=== PATIENT | female | born 1985 | race Caucasian/White ===

== ENCOUNTER 2016-07-27 10:15 | Emergency (ER) | payer OTHER ==
[2016-07-27 10:21] VITALS: TEMP 99
[2016-07-27] MEDS ORDERED: SODIUM CHLORIDE 0.9% 1,000 ML IV STA (10:39)
[2016-07-27] MEDS ORDERED: PANTOPRAZOLE 40 MG/10 ML VIAL IVP STA (10:39)
--- NOTE | 2016-07-27 10:42 | ED ---
Nausea/Vomiting/Diarrhea HPI - General Chief complaint: Nausea/Vomiting/Diarrhea Stated complaint: diarrhea Time Seen by Provider: 07/27/16 10:36 Source: patient, RN notes reviewed Mode of arrival: ambulatory Limitations: no limitations - History of Present Illness Initial comments: 31-year-old female presents emergency Department with chief complaint of diarrhea 2 days. Patient states that it's multiple episodes today and loose watery. Patient states she took some Pepto-Bismol which has not helped. She states she is concerned that she's noticed some black stool states only started after taking Pepto-Bismol. Patient denies any abdominal pain but states she is occasionally gets some cramping. She states her father had similar symptoms. Patient has fever, chills, nausea, vomiting. Patient denies any chest pain or shortness breath. She states she has no history of gastritis or stomach ulcers. Patient does not take regular NSAIDs. Patient has no dysuria no hematuria. - Related Data Home Medications Medication Instructions Recorded Confirmed Levothyroxine Sodium [Synthroid] 50 mcg PO DAILY 08/25/14 07/27/16 Previous Rx's Medication Instructions Recorded Albuterol Inhaler [Ventolin Hfa 1 - 2 puff INHALATION Q4-6H PRN #1 01/11/15 Inhaler] inhaler Allergies Allergy/AdvReac Type Severity Reaction Status Date / Time No Known Allergies Allergy Verified 07/27/16 10:20 Review of Systems ROS Statement: Those systems with pertinent positive or pertinent negative responses have been documented in the HPI. ROS Other: All systems not noted in ROS Statement are negative. Past Medical History Past Medical History: Hypertension, Thyroid Disorder History of Any Multi-Drug Resistant Organisms: None Reported Additional Past Surgical History / Comment(s): eye Past Psychological History: No Psychological Hx Reported Smoking Status: Never smoker Past Alcohol Use History: None Reported Past Drug Use History: None Reported General Exam Limitations: no limitations General appearance: alert, in no apparent distress Head exam: Present: atraumatic, normocephalic, normal inspection Respiratory exam: Present: normal lung sounds bilaterally. Absent: respiratory distress, wheezes, rales, rhonchi, stridor Cardiovascular Exam: Present: regular rate, normal rhythm, normal heart sounds. Absent: systolic murmur, diastolic murmur, rubs, gallop, clicks GI/Abdominal exam: Present: soft, normal bowel sounds. Absent: distended, tenderness, guarding, rebound, rigid Back exam: Absent: CVA tenderness (R), CVA tenderness (L) Neurological exam: Present: alert, oriented X3, CN II-XII intact Course Vital Signs 07/27/16 10:19 Temperature 99.0 F Pulse Rate 86 Respiratory 20 Rate Blood Pressure 152/84 O2 Sat by Pulse 99 Oximetry Medical Decision Making - Medical Decision Making 31-year-old female presents emergency Department with chief complaint of diarrhea. Patient has viral diarrhea there is no evidence of pain pectoral infection at this time. Patient Hemoccult-negative most likely her black stools related to Pepto-Bismol use. Patient be discharged at this time return parameters discussed. - Lab Data Result diagrams: 07/27/16 10:47 07/27/16 10:47 Lab Results 07/27/16 07/27/16 07/27/16 Range/Units 10:47 10:47 10:47 WBC 7.1 (3.8-10.6) k/uL RBC 4.58 (3.80-5.40) m/uL Hgb 13.7 (11.4-16.0) gm/dL Hct 41.5 (34.0-46.0) % MCV 90.5 (80.0-100.0) fL MCH 29.8 (25.0-35.0) pg MCHC 33.0 (31.0-37.0) g/dL RDW 13.1 (11.5-15.5) % Plt Count 231 (150-450) k/uL Neutrophils % 74 % Lymphocytes % 15 % Monocytes % 6 % Eosinophils % 2 % Basophils % 0 % Neutrophils # 5.3 (1.3-7.7) k/uL Lymphocytes # 1.1 (1.0-4.8) k/uL Monocytes # 0.4 (0-1.0) k/uL Eosinophils # 0.2 (0-0.7) k/uL Basophils # 0.0 (0-0.2) k/uL PT 10.2 (9.0-12.0) sec INR 1.0 (<1.1) APTT 24.7 (22.0-30.0) sec Sodium 141 (137-145) mmol/L Potassium 4.5 (3.5-5.1) mmol/L Chloride 107 (98-107) mmol/L Carbon Dioxide 22 (22-30) mmol/L Anion Gap 12 mmol/L BUN 12 (7-17) mg/dL Creatinine 0.70 (0.52-1.04) mg/dL Est GFR (MDRD) Af Amer >60 (>60 ml/min/1.73 sqM) Est GFR (MDRD) Non-Af >60 (>60 ml/min/1.73 sqM) Glucose 102 H (74-99) mg/dL Calcium 8.9 (8.4-10.2) mg/dL Total Bilirubin 0.9 (0.2-1.3) mg/dL AST 24 (14-36) U/L ALT 41 (9-52) U/L Alkaline Phosphatase 120 (38-126) U/L Total Protein 6.8 (6.3-8.2) g/dL Albumin 4.1 (3.5-5.0) g/dL Lipase 57 (23-300) U/L Urine Color Urine Appearance (Clear) Urine pH (5.0-8.0) Ur Specific [place] (1.001-1.035) Urine Protein (Negative) Urine Glucose (UA) (Negative) Urine Ketones (Negative) Urine Blood (Negative) Urine Nitrate (Negative) Urine Bilirubin (Negative) Urine Urobilinogen (<2.0) mg/dL Ur Leukocyte Esterase (Negative) Urine RBC (0-5) /hpf Urine WBC (0-5) /hpf Ur Squamous Epith Cells (0-4) /hpf Urine Bacteria (None) /hpf Urine Mucus (None) /hpf Urine HCG, Qual (Not Detectd) Stool Occult Blood (Negative) 07/27/16 07/27/16 07/27/16 Range/Units 10:47 10:47 10:47 WBC (3.8-10.6) k/uL RBC (3.80-5.40) m/uL Hgb (11.4-16.0) gm/dL Hct (34.0-46.0) % MCV (80.0-100.0) fL MCH (25.0-35.0) pg MCHC (31.0-37.0) g/dL RDW (11.5-15.5) % Plt Count (150-450) k/uL Neutrophils % % Lymphocytes % % Monocytes % % Eosinophils % % Basophils % % Neutrophils # (1.3-7.7) k/uL Lymphocytes # (1.0-4.8) k/uL Monocytes # (0-1.0) k/uL Eosinophils # (0-0.7) k/uL Basophils # (0-0.2) k/uL PT (9.0-12.0) sec INR (<1.1) APTT (22.0-30.0) sec Sodium (137-145) mmol/L Potassium (3.5-5.1) mmol/L Chloride (98-107) mmol/L Carbon Dioxide (22-30) mmol/L Anion Gap mmol/L BUN (7-17) mg/dL Creatinine (0.52-1.04) mg/dL Est GFR (MDRD) Af Amer (>60 ml/min/1.73 sqM) Est GFR (MDRD) Non-Af (>60 ml/min/1.73 sqM) Glucose (74-99) mg/dL Calcium (8.4-10.2) mg/dL Total Bilirubin (0.2-1.3) mg/dL AST (14-36) U/L ALT (9-52) U/L Alkaline Phosphatase (38-126) U/L Total Protein (6.3-8.2) g/dL Albumin (3.5-5.0) g/dL Lipase (23-300) U/L Urine Color Light Yellow Urine Appearance Clear (Clear) Urine pH 6.0 (5.0-8.0) Ur Specific [place] 1.008 (1.001-1.035) Urine Protein Negative (Negative) Urine Glucose (UA) Negative (Negative) Urine Ketones Negative (Negative) Urine Blood Negative (Negative) Urine Nitrate Negative (Negative) Urine Bilirubin Negative (Negative) Urine Urobilinogen <2.0 (<2.0) mg/dL Ur Leukocyte Esterase Small H (Negative) Urine RBC 1 (0-5) /hpf Urine WBC 7 H (0-5) /hpf Ur Squamous Epith Cells 5 H (0-4) /hpf Urine Bacteria Few H (None) /hpf Urine Mucus Rare H (None) /hpf Urine HCG, Qual Not Detected (Not Detectd) Stool Occult Blood Negative (Negative) Disposition Clinical Impression: Viral diarrhea Disposition: HOME SELF-CARE Condition: Stable Instructions: Acute Diarrhea (ED) Additional Instructions: Please return to the Emergency Department if symptoms worsen or any other concerns. Time of Disposition: 11:40
[2016-07-27 11:09] LABS: Basophils % (A) 0 %; CH 30.9; CHCM 34.3; Eosinophils # (A) 0.2 k/uL (0-0.7); Eosinophils % (A) 2 %; HCT 41.5 % (34.0-46.0); HDW 2.76; HGB 13.7 gm/dL (11.4-16.0); Luc # (Auto) 0.19; Luc % (Auto) 3; Lymphocytes # (A) 1.1 k/uL (1.0-4.8); Lymphocytes % (A) 15 %; MCH 29.8 pg (25.0-35.0); MCV 90.5 fL (80.0-100.0); Monocytes # (A) 0.4 k/uL (0-1.0); Monocytes % (A) 6 %; Neutrophils # (A) 5.3 k/uL (1.3-7.7); Neutrophils % (A) 74 %; RBC 4.58 m/uL (3.80-5.40); RDW 13.1 % (11.5-15.5); WBC 7.1 k/uL (3.8-10.6); WBC (Perox) 7.28
[2016-07-27 11:14] LABS: Appearance,Urine Clear (Clear); Bacteria,Urine Few /hpf; Bilirubin,Urine Negative (Negative); Glucose,Urine (UA) Negative (Negative); Ketones,Urine Negative (Negative); Leukocyte Esterase,Urine Small (Negative); Mucus,Urine Rare /hpf; Nitrite,Urine Negative (Negative); Particle Count 1122; Protein,Urine Negative (Negative); RBC,Urine 1 /hpf (0-5); Specific Gravity,Urine 1.008 (1.001-1.035); Squamous Epithelial Cell,Urine 5 /hpf (0-4); UA Billing (MACRO vs. MICRO) MICRO; Urobilinogen,Urine <2.0 mg/dL (<2.0); WBC,Urine 7 /hpf (0-5)
[2016-07-27 11:17] LABS: ALT 41 U/L (9-52); AST 24 U/L (14-36); Alkaline Phosphatase 120 U/L (38-126); Anion Gap 12 mmol/L; Blood Urea Nitrogen 12 mg/dL (7-17); Calcium 8.9 mg/dL (8.4-10.2); Carbon Dioxide 22 mmol/L (22-30); Chloride 107 mmol/L (98-107); Glucose 102 mg/dL (74-99); Non-African American GFR(MDRD) >60 (>60 ml/min/1.73 sqM); Potassium 4.5 mmol/L (3.5-5.1); Sodium 141 mmol/L (137-145); Total Bilirubin 0.9 mg/dL (0.2-1.3); Total Protein 6.8 g/dL (6.3-8.2)
[2016-07-27 11:20] LABS: Partial Thromboplastin Time 24.7 sec (22.0-30.0); Prothrombin Time 10.2 sec (9.0-12.0)
[2016-07-27 12:36] VITALS: BP 138/70; PULSE 78; RESP 18
== END 2016-07-27 12:30 | disposition home or self-care (01) ==
LOC: EC 10:15
DX: A08.4 Viral intestinal infection, unspecified (principal); Z79.899 Other long term (current) drug therapy; E07.9 Disorder of thyroid, unspecified
CPT/HCPCS: 99284; 96374; 96361; 80053; 36415; 83690; 85025; 85610; 85730; 82272; 81001; 81025; C9113

== ENCOUNTER → 2016-09-19 | Outpatient (CLI) | payer OTHER ==
--- NOTE | 2016-09-19 15:12 | US ---
EXAMINATION TYPE: US thyroid st tissue head/neck DATE OF EXAM: 09/19/2016 2:33 PM COMPARISON: US 2014 CLINICAL HISTORY: E09.9 hyperthyroid,R13.10 Dysphagia; On thyroid medication GLAND SIZE: Right Lobe: 4.4 x 0.9 x 0.8 cm Overall Parenchyma: heterogenous Left Lobe: 2.8 x 1.3 x 0.7 cm Overall Parenchyma: heterogeneous Isthmus Thickness: 0.2 cm NODULES RIGHT: # of nodules measured on right: 0 LEFT: # of nodules measured on left: 0 ISTHMUS: # of nodules measured in the isthmus: 0 Bilateral neck scanned, no evidence of lymphadenopathy. IMPRESSION: Normal sized thyroid gland without discrete nodule.
== END ==
LOC: RADUSWWP 14:10
PROVIDERS: ATTEND Family Medicine
DX: E03.9 Hypothyroidism, unspecified (principal)
CPT/HCPCS: 76536

== ENCOUNTER 2017-06-27 11:24 | Emergency (ER) | payer OTHER ==
[2017-06-27 11:40] VITALS: RESP 16
[2017-06-27] MEDS ORDERED: IBUPROFEN 600 MG TAB PO STA (11:54)
[2017-06-27] MEDS ORDERED: IPRATROPIUM-ALBUTEROL 3 ML NEB INHALATION STA (11:54)
[2017-06-27] MEDS ORDERED: ACETAMINOPHEN TAB 500 MG TAB PO STA (11:54)
--- NOTE | 2017-06-27 11:57 | ED ---
General Adult HPI - General Chief complaint: Upper Respiratory Infection Stated complaint: Cough Time Seen by Provider: 06/27/17 11:51 Source: patient, RN notes reviewed, old records reviewed Mode of arrival: ambulatory Limitations: no limitations - History of Present Illness Initial comments: 32-year-old female with past medical history of asthma presents for evaluation of URI symptoms and cough. Patient states that since Friday which is 4 days ago she has had nasal congestion, rhinorrhea, intermittent sore throat and productive cough. She also states that yesterday she had several episodes of vomiting and loose stool. She does complain of some mild body aches. She also complains of chest tightness and congestion. Patient was sent in from work for evaluation. She does complain of fever and chills as well. - Related Data Home Medications Medication Instructions Recorded Confirmed Albuterol Inhaler [Ventolin Hfa 1 - 2 puff INHALATION RT-QID PRN 06/27/17 Inhaler] Beclomethasone Dipropionate [Qvar 2 puff INHALATION RT-BID 06/27/17 06/27/17 40 mcg] Ergocalciferol (Vitamin D2) 50,000 unit PO Q7D 06/27/17 06/27/17 [Vitamin D2] Levothyroxine Sodium [Synthroid] 75 mcg PO DAILY 06/27/17 06/27/17 Loratadine [Claritin] 10 mg PO DAILY 06/27/17 06/27/17 Previous Rx's Medication Instructions Recorded Albuterol Inhaler [Ventolin Hfa 1 - 2 puff INHALATION Q4HR PRN #1 06/27/17 Inhaler] inhaler Azithromycin [Zithromax Z-pack] 0 mg PO DIRECTED #6 tab 06/27/17 methylPREDNISolone Dose Pack 4 mg PO DIRECTED #21 package 06/27/17 [Medrol Dose Pack] Allergies Allergy/AdvReac Type Severity Reaction Status Date / Time No Known Allergies Allergy Verified 06/27/17 12:14 Review of Systems ROS Statement: Those systems with pertinent positive or pertinent negative responses have been documented in the HPI. ROS Other: All systems not noted in ROS Statement are negative. Past Medical History Past Medical History: Hypertension, Thyroid Disorder History of Any Multi-Drug Resistant Organisms: None Reported Additional Past Surgical History / Comment(s): eye Past Psychological History: No Psychological Hx Reported Smoking Status: Never smoker Past Alcohol Use History: None Reported Past Drug Use History: None Reported General Exam Limitations: no limitations General appearance: alert, in no apparent distress Head exam: Present: atraumatic, normocephalic Eye exam: Present: normal appearance, PERRL ENT exam: Present: other (Bilateral nasal congestion). Absent: normal oropharynx (Mild pharyngeal erythema, no tonsillar swelling or exudate) Neck exam: Present: normal inspection. Absent: tenderness, meningismus Respiratory exam: Present: other (Bronchospastic cough, good air entry). Absent : respiratory distress, rhonchi GI/Abdominal exam: Present: soft. Absent: distended, tenderness Extremities exam: Present: normal inspection, normal capillary refill. Absent: pedal edema Neurological exam: Present: alert, oriented X3, CN II-XII intact. Absent: motor sensory deficit Psychiatric exam: Present: normal affect, normal mood Skin exam: Present: warm, dry, intact. Absent: cyanosis, diaphoretic Course Vital Signs 06/27/17 06/27/17 06/27/17 11:38 12:27 12:34 Temperature 101.2 F H Pulse Rate 105 H 100 96 Respiratory 16 Rate Blood Pressure 168/72 O2 Sat by Pulse 99 Oximetry - Reevaluation(s) Reevaluation #1: 06/27/17 13:04 Patient given Tylenol Motrin and albuterol the emergency department on reevaluation she is feeling better. Medical Decision Making - Medical Decision Making 32-year-old female history asthma presents with URI symptoms and productive cough. Chest x-ray negative for focal pneumonia. Patient has good air entry with bronchospastic cough. No respiratory distress. Influenza is negative. Patient will be prescribed albuterol, steroids, and azithromycin. - Lab Data Lab Results 06/27/17 Range/Units 12:25 Influenza Type A RNA Not Detected (Not Detectd) Influenza Type B (PCR) Not Detected (Not Detectd) Disposition Clinical Impression: Bronchitis, Upper respiratory infection Disposition: HOME SELF-CARE Condition: Good Instructions: Upper Respiratory Infection (ED), Acute Bronchitis (ED) Prescriptions: Albuterol Inhaler [Ventolin Hfa Inhaler] 1 - 2 puff INHALATION Q4HR PRN #1 inhaler PRN Reason: Shortness Of Breath Azithromycin [Zithromax Z-pack] 0 mg PO DIRECTED #6 tab methylPREDNISolone Dose Pack [Medrol Dose Pack] 4 mg PO DIRECTED #21 package Referrals: Raina Brandt MD [Primary Care Provider] - 1-2 days Time of Disposition: 13:05
--- NOTE | 2017-06-27 13:02 | XR ---
EXAMINATION TYPE: XR chest 2V DATE OF EXAM: 06/27/2017 COMPARISON: 10/28/2015 INDICATION: Pain congestion chest pain TECHNIQUE: Frontal and lateral views of the chest are obtained. FINDINGS: The heart size is normal. The pulmonary vasculature is normal. The lungs are clear. IMPRESSION: 1. No acute pulmonary process.
[2017-06-27 13:14] VITALS: BP 143/85; PULSE 95; TEMP 99.3
== END 2017-06-27 13:13 | disposition home or self-care (01) ==
LOC: EC 11:24
DX: J40 Bronchitis, not specified as acute or chronic (principal); J06.9 Acute upper respiratory infection, unspecified; R11.10 Vomiting, unspecified; J45.909 Unspecified asthma, uncomplicated; E07.9 Disorder of thyroid, unspecified; Z79.51 Long term (current) use of inhaled steroids; Z79.899 Other long term (current) drug therapy
CPT/HCPCS: 71046; 87502; 94640; 99284

== ENCOUNTER → 2017-07-23 | Outpatient (CLI) | payer OTHER ==
[2017-07-23 11:46] LABS: Basophils # (A) 0.1 k/uL (0-0.2); Basophils % (A) 1 %; Eosinophils # (A) 0.2 k/uL (0-0.7); Eosinophils % (A) 2 %; HCT 41.5 % (34.0-46.0); HGB 14.2 gm/dL (11.4-16.0); Lymphocytes # (A) 2.3 k/uL (1.0-4.8); Lymphocytes % (A) 29 %; MCH 30.1 pg (25.0-35.0); MCHC 34.1 g/dL (31.0-37.0); MCV 88.3 fL (80.0-100.0); Mean Platelet Volume 6.9; Monocytes # (A) 0.5 k/uL (0-1.0); Monocytes % (A) 6 %; Neutrophils # (A) 4.7 k/uL (1.3-7.7); Neutrophils % (A) 60 %; Platelet Count 337 k/uL (150-450); RBC 4.71 m/uL (3.80-5.40); RDW 12.9 % (11.5-15.5); WBC 7.8 k/uL (3.8-10.6)
[2017-07-23 12:21] LABS: ALT 32 U/L (9-52); AST 18 U/L (14-36); Albumin 4.3 g/dL (3.5-5.0); Alkaline Phosphatase 107 U/L (38-126); Anion Gap 12 mmol/L; Blood Urea Nitrogen 16 mg/dL (7-17); Calcium 9.8 mg/dL (8.4-10.2); Carbon Dioxide 25 mmol/L (22-30); Chloride 102 mmol/L (98-107); Glucose 91 mg/dL (74-99); Potassium 4.8 mmol/L (3.5-5.1); Sodium 139 mmol/L (137-145); Total Bilirubin 0.8 mg/dL (0.2-1.3)
[2017-07-23 12:37] LABS: T4, Free (Free Thyroxine) 1.29 ng/dL (0.78-2.19)
[2017-07-23 16:48] LABS: Thyroid Peroxidase Antibodies 36.8 U/mL (0.0-60.0)
== END | disposition home or self-care (01) ==
LOC: LABWHC1 11:05
PROVIDERS: ATTEND Nurse Practitioner Family
DX: E03.9 Hypothyroidism, unspecified (principal)
CPT/HCPCS: 36415; 80053; 84439; 84443; 85025; 86376; 86800

== ENCOUNTER → 2017-12-11 | Outpatient (CLI) | payer OTHER ==
[2017-12-11 11:21] LABS: Basophils % (A) 0 %; Eosinophils # (A) 0.2 k/uL (0-0.7); Eosinophils % (A) 2 %; HCT 41.5 % (34.0-46.0); HGB 13.8 gm/dL (11.4-16.0); Lymphocytes # (A) 2.3 k/uL (1.0-4.8); Lymphocytes % (A) 21 %; MCH 29.7 pg (25.0-35.0); MCHC 33.3 g/dL (31.0-37.0); MCV 89.1 fL (80.0-100.0); Mean Platelet Volume 6.3; Monocytes # (A) 0.6 k/uL (0-1.0); Monocytes % (A) 5 %; Neutrophils # (A) 7.5 k/uL (1.3-7.7); Neutrophils % (A) 70 %; Platelet Count 326 k/uL (150-450); RBC 4.66 m/uL (3.80-5.40); RDW 13.1 % (11.5-15.5); WBC 10.8 k/uL (3.8-10.6)
[2017-12-11 13:01] LABS: ALT 35 U/L (9-52); AST 25 U/L (14-36); Albumin 3.8 g/dL (3.5-5.0); Alkaline Phosphatase 90 U/L (38-126); Anion Gap 6 mmol/L; Blood Urea Nitrogen 12 mg/dL (7-17); Calcium 9.2 mg/dL (8.4-10.2); Carbon Dioxide 27 mmol/L (22-30); Chloride 103 mmol/L (98-107); Cholesterol 184 mg/dL (<200); Glucose 91 mg/dL (74-99); HDL Cholesterol 30 mg/dL (40-60); LDL Cholesterol,Calculated 101 mg/dL (0-99); Potassium 5.2 mmol/L (3.5-5.1); Sodium 136 mmol/L (137-145); Total Protein 6.5 g/dL (6.3-8.2); Triglycerides 267 mg/dL (<150)
[2017-12-11 20:38] LABS: Hemoglobin A1C 5.3 % (4.0-6.0)
== END | disposition home or self-care (01) ==
LOC: LABWHC1 10:59
PROVIDERS: ATTEND Nurse Practitioner Family
DX: E03.9 Hypothyroidism, unspecified (principal); E78.5 Hyperlipidemia, unspecified; J42 Unspecified chronic bronchitis; E55.9 Vitamin D deficiency, unspecified
CPT/HCPCS: 36415; 80053; 80061; 82306; 83036; 84443; 85025

== ENCOUNTER 2018-02-14 14:47 | Emergency (ER) | payer OTHER ==
[2018-02-14 14:53] VITALS: RESP 18; TEMP 98.2
--- NOTE | 2018-02-14 15:31 | ED ---
URI HPI - General Chief Complaint: Upper Respiratory Infection Stated Complaint: Cough Time Seen by Provider: 02/14/18 14:58 Source: patient, RN notes reviewed, old records reviewed Mode of arrival: ambulatory Limitations: no limitations - History of Present Illness Initial Comments: 32-year-old female presents emergency department today with chief complaint of cough congestion shortness of breath. Patient ports and had some sweats 2 days Patient states she called off of work today. She denies a sore throat Patient denies any fever or chills. Denies any history of sick contacts. 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 - Related Data Home Medications Medication Instructions Recorded Confirmed Albuterol Inhaler [Ventolin Hfa 1 - 2 puff INHALATION RT-QID PRN 06/27/17 Inhaler] Beclomethasone Dipropionate [Qvar 2 puff INHALATION RT-BID 06/27/17 06/27/17 40 mcg] Ergocalciferol (Vitamin D2) 50,000 unit PO Q7D 06/27/17 06/27/17 [Vitamin D2] Levothyroxine Sodium [Synthroid] 75 mcg PO DAILY 06/27/17 06/27/17 Loratadine [Claritin] 10 mg PO DAILY 06/27/17 06/27/17 Previous Rx's Medication Instructions Recorded Albuterol Inhaler [Ventolin Hfa 1 - 2 puff INHALATION Q4HR PRN #1 06/27/17 Inhaler] inhaler Azithromycin [Zithromax Z-pack] 0 mg PO DIRECTED #6 tab 06/27/17 methylPREDNISolone Dose Pack 4 mg PO DIRECTED #21 package 06/27/17 [Medrol Dose Pack] Azithromycin [Zithromax Z-pack] 0 mg PO DIRECTED #6 tab 02/14/18 guaiFENesin-DM 600/30MG [Mucinex 1 each PO Q12HR #20 tab.er.12h 02/14/18 Dm] methylPREDNISolone Dose Pack 4 mg PO DIRECTED #21 package 02/14/18 [Medrol Dose Pack] Allergies Allergy/AdvReac Type Severity Reaction Status Date / Time No Known Allergies Allergy Verified 02/14/18 14:53 Review of Systems ROS Statement: Those systems with pertinent positive or pertinent negative responses have been documented in the HPI. ROS Other: All systems not noted in ROS Statement are negative. Past Medical History Past Medical History: Hypertension, Thyroid Disorder History of Any Multi-Drug Resistant Organisms: None Reported Additional Past Surgical History / Comment(s): eye Past Psychological History: No Psychological Hx Reported Smoking Status: Never smoker Past Alcohol Use History: None Reported Past Drug Use History: None Reported General Exam - General Exam Comments Initial Comments: Well-appearing 32-year-old female. No acute distress. General: Well appearing, well nourished, in no distress. Oriented x 3, normal mood and affect . Ambulating without difficulty. Skin: Good turgor, no rash, unusual bruising or prominent lesions Hair: Normal texture and distribution. HEENT: Head: Normocephalic, atraumatic, no visible or palpable masses, depressions, or scaring. Eyes: Visual acuity intact, conjunctiva clear, sclera non-icteric, EOM intact, PERRL. Ears: EACs clear, TMs translucent & cone of light visualized. hearing intact. Nose: No external lesions, mucosa non-inflamed, septum and turbinates normal Mouth: Mucous membranes moist, no mucosal lesions. Teeth/Gums: No obvious caries or periodontal disease. No gingival inflammation or significant resorption. Pharynx: Mucosa non-inflamed, no tonsillar hypertrophy or exudate Neck: Supple, without lesions, bruits, or adenopathy, thyroid non-enlarged and non-tender Heart: No cardiomegaly or thrills; regular rate and rhythm, no murmur or gallop Lungs: Clear to auscultation and percussion Extremities: No amputations or deformities, cyanosis, edema or varicosities, peripheral pulses intact Musculoskeletal: Normal gait and station. No misalignment, asymmetry, crepitation, defects, tenderness, masses, effusions, decreased range of motion, instability, atrophy or abnormal strength or tone in the head, neck, spine, ribs , pelvis or extremities. Neurologic: CN 2-12 normal. Sensation to pain, touch, and proprioception normal. DTRs normal in upper and lower extremities. No pathologic reflexes. Psychiatric: Oriented X3, intact recent and remote memory, judgment and insight , normal mood and affect. Limitations: no limitations Course Vital Signs 02/14/18 14:51 Temperature 98.2 F Pulse Rate 91 Respiratory 18 Rate Blood Pressure 140/102 O2 Sat by Pulse 99 Oximetry Medical Decision Making - Medical Decision Making 32-year-old female presents emergency department today with chief complaint of cough congestion shortness breath. She denies a sore throat. This time Patient is given prednisone, lungs are clear to auscultation. No severe wheezing. Patient's chest x-ray was reviewed and normal. We'll chart discharge Patient with a diagnosis of orchitis. Started on steroids. Discussed a temp after medication and mucous medication. Patient agrees treatment plan will comply. Return parameters were discussed. Disposition Clinical Impression: Bronchitis Disposition: HOME SELF-CARE Condition: Good Instructions: Acute Bronchitis (ED) Additional Instructions: Patient advised follow-up with primary care physician. Take medication as prescribed. Return to emergency department if any alarming signs or symptoms occur. Prescriptions: Azithromycin [Zithromax Z-pack] 0 mg PO DIRECTED #6 tab guaiFENesin-DM 600/30MG [Mucinex Dm] 1 each PO Q12HR #20 tab.er.12h methylPREDNISolone Dose Pack [Medrol Dose Pack] 4 mg PO DIRECTED #21 package Is patient prescribed a controlled substance at d/c from ED?: No Referrals: Raina Brandt MD [Primary Care Provider] - 1-2 days Time of Disposition: 16:32
[2018-02-14] MEDS ORDERED: predniSONE 50 MG TAB PO STA (15:33)
--- NOTE | 2018-02-14 16:44 | XR ---
EXAMINATION TYPE: XR chest 2V DATE OF EXAM: 02/14/2018 COMPARISON: 06/27/2017 INDICATION: Pain congestion cough TECHNIQUE: Frontal and lateral views of the chest are obtained. FINDINGS: The heart size is normal. The pulmonary vasculature is normal. The lungs are clear. IMPRESSION: 1. No acute pulmonary process.
[2018-02-14 16:59] VITALS: BP 130/92; PULSE 85
== END 2018-02-14 16:58 | disposition home or self-care (01) ==
LOC: EC 14:47
DX: J40 Bronchitis, not specified as acute or chronic (principal); E07.9 Disorder of thyroid, unspecified; Z79.51 Long term (current) use of inhaled steroids; Z79.899 Other long term (current) drug therapy
CPT/HCPCS: 71046; 99285; J7512

== ENCOUNTER 2018-10-15 16:28 | Emergency (ER) | payer OTHER ==
[2018-10-15 17:14] VITALS: BP 138/69; PULSE 73; RESP 18; TEMP 98.9
--- NOTE | 2018-10-15 17:59 | ED ---
Lower Extremity Injury HPI - General Chief Complaint: Extremity Injury, Lower Stated Complaint: Foot Swelling Time Seen by Provider: 10/15/18 17:44 Source: patient Mode of arrival: ambulatory Limitations: no limitations - History of Present Illness Initial Comments: 33-year-old female presented for right foot swelling. Patient states she is a tender swollen right foot. Patient states her foot is tender to weight-bear and ambulate. Denies any erythema fever or chills night sweats. Denies history of gout. Upon initial history taking patient states she did not injure her foot. She denies any recent travel, recent surgeries, history of DVT or pulmonary embolism. Patient denies any anticoagulation use. Remaining review of system negative. When I went to place patient splint, she states I feel like this occurred when I was ice skating and twisted my foot.-Therefore history positive of injury. - Related Data Home Medications Medication Instructions Recorded Confirmed Beclomethasone Dipropionate [Qvar 2 puff INHALATION RT-BID 06/27/17 10/15/18 40 mcg] Ergocalciferol (Vitamin D2) 50,000 unit PO TH 06/27/17 10/15/18 [Vitamin D2] Atorvastatin [Lipitor] 40 mg PO DAILY 10/15/18 10/15/18 Cetirizine HCl [Zyrtec] 10 mg PO DAILY 10/15/18 10/15/18 Cyanocobalamin (Vitamin B-12) 1,000 mcg PO DAILY 10/15/18 10/15/18 [Vitamin B-12] Levothyroxine Sodium [Synthroid] 88 mcg PO DAILY 10/15/18 10/15/18 Multivitamins, Thera [Multivitamin 1 tab PO DAILY 10/15/18 10/15/18 (formulary)] Previous Rx's Medication Instructions Recorded Albuterol Inhaler [Ventolin Hfa 1 - 2 puff INHALATION Q4HR PRN #1 06/27/17 Inhaler] inhaler Allergies Allergy/AdvReac Type Severity Reaction Status Date / Time No Known Allergies Allergy Verified 10/15/18 17:57 Review of Systems ROS Statement: Those systems with pertinent positive or pertinent negative responses have been documented in the HPI. ROS Other: All systems not noted in ROS Statement are negative. Past Medical History Past Medical History: Hypertension, Thyroid Disorder History of Any Multi-Drug Resistant Organisms: None Reported Additional Past Surgical History / Comment(s): eye Past Psychological History: No Psychological Hx Reported Smoking Status: Never smoker Past Alcohol Use History: None Reported Past Drug Use History: None Reported General Exam - General Exam Comments Initial Comments: General: The patient is awake and alert, in no distress, and does not appear acutely ill. Eye: Pupils are equal, round and reactive to light, extra-ocular movements are intact. No nystagmus. There is normal conjunctiva bilaterally. No signs of icterus. Ears, nose, mouth and throat: There are moist mucous membranes and no oral lesions. Neck: The neck is supple, there is no tenderness or JVD. Cardiovascular: There is a regular rate and rhythm. No murmur, rub or gallop is appreciated. Respiratory: Lungs are clear to auscultation, respirations are non-labored, breath sounds are equal. No wheezes, stridor, rales, or rhonchi. Musculoskeletal: Upon inspection of the feet bilaterally mild soft tissue swelling of the right foot. Patient tender palpation over the medial aspect of the right forefoot. Normal ROM, no tenderness at the ankles knees bilaterally- patient is tender with plantar dorsiflexion of the right foot. Strength 5/5. Sensation intact both excellent distal to injury site equal in comparison with unaffected extremity. DP pulses equal bilaterally 2+. Negative Homans. No pain to palpation of the right calf. No calf swelling. Neurological: A&O x 3. CN II-XII intact, There are no obvious motor or sensory deficits. Coordination appears grossly intact. Speech is normal. Skin: Skin is warm and dry and no rashes or lesions are noted. Psychiatric: Cooperative, appropriate mood & affect, normal judgment. Limitations: no limitations Course Vital Signs 10/15/18 17:08 Temperature 98.9 F Pulse Rate 73 Respiratory 18 Rate Blood Pressure 138/69 O2 Sat by Pulse 100 Oximetry Medical Decision Making - Medical Decision Making 33-year-old presenting for right foot swelling. Initially patient denied any specific trauma. Ultrasound revealed no DVT. Imaging studies no acute process. No fractures or acute osseous injury. When splinting patient she states she did have an injury 1 week prior while ice skating. Patient is placed in a splint given nonweightbearing instructions and prescription for crutches. Patient is to follow-up with orthopedic surgery for persistent pain. Patient is agreeable care plan I discussed rice instruction as well as importance of follow-up and return if pain worsens. Patient is agreeable care plan as well as discharge. I discussed the case wiht attending provider Dr. Amaro. Disposition Clinical Impression: Swelling of right foot, Right foot pain, Foot sprain Disposition: HOME SELF-CARE Condition: Good Instructions (If sedation given, give patient instructions): Foot Sprain (ED) Additional Instructions: Please use medication as discussed. Please keep splint in place please use crutches for ambulation. Please follow-up with orthopedic surgery within the next 2-3 days, no weightbearing please use crutches for all walking. Please follow-up with family doctor in the next 2 days.. Please return to emergency room if the symptoms increase or worsen or for any other concerns. Is patient prescribed a controlled substance at d/c from ED?: No Referrals: Raina Brandt MD [Primary Care Provider] - 1-2 days Isac Beavers DO [Medical Doctor] - 1-2 days Time of Disposition: 19:43
--- NOTE | 2018-10-15 18:29 | XR ---
EXAMINATION TYPE: XR ankle complete RT DATE OF EXAM: 10/15/2018 COMPARISON: NONE HISTORY: Foot pain TECHNIQUE: 3 views FINDINGS: There is plantar calcaneal spurring. There is a small Achilles calcaneal spur. Ankle mortis e is anatomic. I see no fracture. IMPRESSION: Calcaneal spurring. No fracture seen.
--- NOTE | 2018-10-15 18:30 | XR ---
EXAMINATION TYPE: XR foot complete RT DATE OF EXAM: 10/15/2018 COMPARISON: NONE HISTORY: Foot pain TECHNIQUE: 3 views FINDINGS: There is plantar calcaneal spurring. There is some soft tissue swelling of the forefoot. Me tatarsals appear intact. I see no fracture. IMPRESSION: Soft tissue swelling. No fracture seen.
--- NOTE | 2018-10-15 19:39 | US ---
EXAMINATION TYPE: US venous doppler duplex LE RT DATE OF EXAM: 10/15/2018 7:32 PM COMPARISON: NONE CLINICAL HISTORY: Pain. Right ankle swelling. SIDE PERFORMED: Right TECHNIQUE: The lower extremity deep venous system is examined utilizing real time linear array sonog adriano with graded compression, doppler sonography and color-flow sonography. VESSELS IMAGED: External Iliac Vein (EIV) Common Femoral Vein Deep Femoral Vein Greater Saphenous Vein * Femoral Vein Popliteal Vein Small Saphenous Vein * Proximal Calf Veins (* superficial vessels) Right Leg: Negative for DVT No evidence of DVT right leg. IMPRESSION: Normal right leg duplex venous sonogram.
== END 2018-10-15 20:30 | disposition home or self-care (01) ==
LOC: EC 16:28
DX: S93.601A Unspecified sprain of right foot, initial encounter (principal); M25.474 Effusion, right foot; E78.5 Hyperlipidemia, unspecified; E07.9 Disorder of thyroid, unspecified; Z79.890 Hormone replacement therapy; Z79.899 Other long term (current) drug therapy
CPT/HCPCS: 99284

== ENCOUNTER → 2019-11-09 | Outpatient (CLI) | payer OTHER | END | disposition home or self-care (01) | LOC: LABWHC1 07:00 | PROVIDERS: ATTEND Nurse Practitioner Family | DX: Z11.59 Encounter for screening for other viral diseases (principal) ==

== ENCOUNTER → 2019-11-25 | Outpatient (CLI) | payer OTHER | END | disposition home or self-care (01) | LOC: LABWHC1 12:57 | PROVIDERS: ATTEND Family Medicine | DX: U07.1 COVID-19 (principal) | CPT/HCPCS: U0003; C9803 ==

== ENCOUNTER 2020-06-01 12:32 | Emergency (ER) | payer OTHER ==
[2020-06-01 12:37] VITALS: RESP 18; TEMP 97.3
[2020-06-01] MEDS ORDERED: ACETAMINOPHEN TAB 500 MG TAB PO STA (13:19)
--- NOTE | 2020-06-01 13:42 | ED ---
General Adult HPI - General Chief complaint: Fall Stated complaint: Fall/Dizzy Time Seen by Provider: 06/01/20 12:42 Source: patient, RN notes reviewed Mode of arrival: ambulatory Limitations: no limitations - History of Present Illness Initial comments: 35-year-old female with a past medical history of hypertension presents to the emergency room for a chief complaint of head injury. 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 Patient reports that she was using a hover board 2 days ago. States it went out from under her and she fell backwards and hit her head on the floor. Patient states she has had head and neck pain since that time. She did not have a loss of consciousness. She does not take blood thinners. She states she has had some dizzy spells associated with this headache is also some nausea and light sensitivity. Patient called her doctor today and was told to come into the emergency room.Leo wheeler has no other complaints at this time including shortness of breath, chest pain, abdominal pain, nausea or vomiting, headache, or visual changes. - Related Data Home Medications Medication Instructions Recorded Confirmed Beclomethasone Dipropionate [Qvar 2 puff INHALATION RT-BID 06/27/17 06/01/20 40 mcg] Ergocalciferol (Vitamin D2) 50,000 unit PO TU 06/27/17 06/01/20 [Vitamin D2] Atorvastatin [Lipitor] 40 mg PO HS 10/15/18 06/01/20 Cetirizine HCl [Zyrtec] 10 mg PO DAILY 10/15/18 06/01/20 Levothyroxine Sodium [Synthroid] 88 mcg PO DAILY 10/15/18 06/01/20 Albuterol Sulfate [Ventolin HFA] 1 - 2 puff INHALATION RT-Q6H PRN 06/01/20 06/01/20 Allergies Allergy/AdvReac Type Severity Reaction Status Date / Time No Known Allergies Allergy Verified 06/01/20 13:07 Review of Systems ROS Statement: Those systems with pertinent positive or pertinent negative responses have been documented in the HPI. ROS Other: All systems not noted in ROS Statement are negative. Past Medical History Past Medical History: Hypertension, Thyroid Disorder History of Any Multi-Drug Resistant Organisms: None Reported Additional Past Surgical History / Comment(s): eye Past Psychological History: No Psychological Hx Reported Smoking Status: Never smoker Past Alcohol Use History: None Reported Past Drug Use History: None Reported General Exam Limitations: no limitations General appearance: alert Head exam: Present: atraumatic Eye exam: Present: normal appearance, PERRL, EOMI. Absent: scleral icterus, conjunctival injection ENT exam: Present: normal exam, mucous membranes moist Neck exam: Present: normal inspection, full ROM. Absent: tenderness Respiratory exam: Present: normal lung sounds bilaterally. Absent: respiratory distress Cardiovascular Exam: Present: regular rate, normal rhythm, normal heart sounds GI/Abdominal exam: Present: soft, normal bowel sounds. Absent: distended, tenderness, guarding, rebound, rigid Neurological exam: Present: alert, oriented X3, normal gait, other (GCS15) Course Vital Signs 06/01/20 06/01/20 12:33 13:51 Temperature 97.3 F L Pulse Rate 85 72 Respiratory 18 18 Rate Blood Pressure 172/98 151/98 O2 Sat by Pulse 99 99 Oximetry Medical Decision Making - Medical Decision Making Vitals are stable. No focal neurologic deficits. GCS 15. Patient denies any chance of . CT brain shows there may be an underlying chiari malformation given 6.5 mm of cerebellar tonsillar ectopia. Consider a nonemergent MRI of the brain and cervical spine. No acute intercranial abnormality seen. No acute fracture or malalignment of the cervical spine. There is disc osteophyte complex at C6 to C7 that may cause a mild spinal canal stenosis. I did discuss this finding of Chiari malformation and recommended she follow up with her primary care provider for MRI. At this time patient's symptoms are consistent with concussion. Patient will be given 2 days off work. She will take Motrin and Tylenol for pain and try to rest. She will return here for any worsening symptoms and follow up closely with primary care to ensure resolution of symptoms. I discussed this case with attending Dr. Beltran who agrees with this assessment and treatment plan. Disposition Clinical Impression: Head injury Disposition: HOME SELF-CARE Condition: Good Instructions (If sedation given, give patient instructions): Concussion (ED) Additional Instructions: Please take Motrin and Tylenol for pain. Rest as much as possible. Return to the emergency room for any worsening symptoms. Is patient prescribed a controlled substance at d/c from ED?: No Referrals: Raina Brandt MD [Primary Care Provider] - 1-2 days Time of Disposition: 14:27
[2020-06-01 13:56] VITALS: BP 151/98; PULSE 72
--- NOTE | 2020-06-01 14:19 | CT ---
EXAMINATION TYPE: CT brain [facility] con DATE OF EXAM: 06/01/2020 COMPARISON: None HISTORY: 35-year-old female Fall, dizzy CT DLP: 1373.6 mGycm Automated exposure control for dose reduction was used. Technique: Examination of the head was done in axial plane without intravenous contrast. Coronal and sagittal reconstructions performed. CT of the cervical spine was obtained in axial plane without intravenous injection of contrast mater ial. Coronal and sagittal reformatted images were obtained from the axial views for evaluation of f ractures, spinal alignment and canal. FINDINGS: Head: There is no evidence of acute intracranial hemorrhage, acute ischemic changes, mass, mass-effect, or extra-axial fluid collection. There is no effacement of cerebral sulci or basal subarachnoid cister ns. There is no hydrocephalus. There is no midline shift. Arias-white matter distinction is preserv ed. There appears to be cerebellar tonsillar ectopia measuring up to 6.5 mm within the narrowing of the c erebellar tonsils. Benign basal ganglia calcifications. Leftward nasal septal deviation. Orbits and globes appear intact. Mastoid air cells well pneumatized. Cervical spine: The craniocervical junction anomaly, predental space widening, or prevertebral soft tissue swelling. Alignment of the cervical spine with straightening of the normal cervical lordosis. Mild degenerative disc disease lower cervical spine. Disc osteophyte complex at C6-C7 mildly narrows the spinal canal. Facet arthropathy lower cervical spine especially on the left. No acute fracture is identified Sagittal and coronal reformatted images confirm above findings. COMBINED IMPRESSION: 1. There may be an underlying Chiari I malformation given 6.5 mm of cerebellar tonsillar ectopia. 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 No acute int racranial abnormality seen. 2. No acute fracture malalignment of the cervical spine. Disc osteophyte complex at C6-C7 may cause a mild spinal canal stenosis. Facet arthropathy especially toward the left in the lower cervical spine .
== END 2020-06-01 14:53 | disposition home or self-care (01) ==
LOC: EC 12:32
DX: S09.90XA Unspecified injury of head, initial encounter (principal); Q04.8 Other specified congenital malformations of brain; M25.78 Osteophyte, vertebrae; I10 Essential (primary) hypertension; E07.9 Disorder of thyroid, unspecified; Z79.890 Hormone replacement therapy; Z79.899 Other long term (current) drug therapy; V00.848A Other accident with standing micro-mobility pedestrian conveyance, initial encounter
CPT/HCPCS: 70450; 72125; 99284

== ENCOUNTER 2021-01-26 18:21 | Emergency (ER) | payer OTHER ==
--- NOTE | 2021-01-26 18:37 | ED ---
General Adult HPI - General Chief complaint: ENT Stated complaint: Thoat issues Time Seen by Provider: 01/26/21 18:29 Source: patient, RN notes reviewed, old records reviewed Mode of arrival: ambulatory Limitations: no limitations - History of Present Illness Initial comments: This is a well-appearing 35-year-old white female that presents to the emergency room with complaints of having a sore throat this morning. She states that the sore throat has resolved but she had to call into work and her employer was concerned that she may have Covid. She also has seasonal ALLERGIES and has not been taking her ALLERGY medication yet. She denies any nausea vomiting diarrhea or fevers. She has no shortness of breath. She is requesting a note for work. -: days(s) (1) Location: neck Radiation: non-radiation (Sore throat) Severity scale (1-10): 0 Consistency: now resolved Associated Symptoms: denies other symptoms Treatments Prior to Arrival: none - Related Data Home Medications Medication Instructions Recorded Confirmed Beclomethasone Dipropionate [Qvar 2 puff INHALATION RT-BID 06/27/17 06/01/20 40 mcg] Ergocalciferol (Vitamin D2) 50,000 unit PO TU 06/27/17 06/01/20 [Vitamin D2] Atorvastatin [Lipitor] 40 mg PO HS 10/15/18 06/01/20 Cetirizine HCl [Zyrtec] 10 mg PO DAILY 10/15/18 06/01/20 Levothyroxine Sodium [Synthroid] 88 mcg PO DAILY 10/15/18 06/01/20 Albuterol Sulfate [Ventolin HFA] 1 - 2 puff INHALATION RT-Q6H PRN 06/01/20 06/01/20 Allergies Allergy/AdvReac Type Severity Reaction Status Date / Time No Known Allergies Allergy Verified 01/26/21 18:25 Review of Systems ROS Statement: Those systems with pertinent positive or pertinent negative responses have been documented in the HPI. ROS Other: All systems not noted in ROS Statement are negative. Past Medical History Past Medical History: Hypertension, Thyroid Disorder History of Any Multi-Drug Resistant Organisms: None Reported Additional Past Surgical History / Comment(s): eye Past Psychological History: No Psychological Hx Reported Smoking Status: Never smoker Past Alcohol Use History: None Reported Past Drug Use History: None Reported General Exam Limitations: no limitations General appearance: alert, in no apparent distress Head exam: Present: atraumatic, normocephalic, normal inspection Eye exam: Present: normal appearance, PERRL, EOMI. Absent: scleral icterus, conjunctival injection, periorbital swelling ENT exam: Present: normal exam, normal oropharynx, mucous membranes moist Neck exam: Present: normal inspection, full ROM. Absent: tenderness, meningismus, lymphadenopathy Respiratory exam: Present: normal lung sounds bilaterally. Absent: respiratory distress, wheezes, rales, rhonchi, stridor, chest wall tenderness, accessory muscle use Cardiovascular Exam: Present: regular rate, normal rhythm, normal heart sounds. Absent: systolic murmur, diastolic murmur, rubs, gallop, clicks Extremities exam: Present: normal inspection, full ROM, normal capillary refill. Absent: tenderness, pedal edema, joint swelling, calf tenderness Neurological exam: Present: alert, oriented X3, CN II-XII intact Psychiatric exam: Present: normal affect, normal mood Skin exam: Present: warm, dry, intact, normal color. Absent: rash, cyanosis, diaphoretic, petechiae, pallor Course Vital Signs 01/26/21 01/26/21 18:22 19:51 Temperature 98.0 F 98.6 F Pulse Rate 80 71 Respiratory 20 22 Rate Blood Pressure 151/94 127/77 O2 Sat by Pulse 98 98 Oximetry Medical Decision Making - Medical Decision Making Patient's Covid test is negative. Her sore throat, which has resolved, is likely related to her seasonal ALLERGIES. She denies any other symptoms including cough or fevers. She denies any sick contacts. She'll be directed to continue her ALLERGY medications daily and follow up with her doctor as needed. Return to the emergency room with any new or worsening symptoms. She was given a work note as requested since she called into work today - Lab Data Lab Results 01/26/21 Range/Units 18:39 Coronavirus (PCR) Not Detected (Not Detectd) Disposition Clinical Impression: Well adult exam Disposition: HOME SELF-CARE Condition: Good Additional Instructions: Continue to take your ALLERGY medications as needed. Return to the emergency room with any new or worsening symptoms. Your Covid test today is negative. Is patient prescribed a controlled substance at d/c from ED?: No Referrals: Raina Brandt MD [Primary Care Provider] - 1-2 days Time of Disposition: 19:32
[2021-01-26 19:55] VITALS: BP 127/77; PULSE 71; RESP 22; TEMP 98.6
== END 2021-01-26 19:54 | disposition home or self-care (01) ==
LOC: EC 18:21
DX: Z00.00 Encounter for general adult medical examination without abnormal findings (principal); I10 Essential (primary) hypertension; E07.9 Disorder of thyroid, unspecified; Z20.822 Contact with and (suspected) exposure to COVID-19
CPT/HCPCS: 87635; 99283

== ENCOUNTER 2021-07-23 16:13 | Emergency (ER) | payer OTHER ==
[2021-07-23 17:06] VITALS: BP 148/85; PULSE 75; RESP 16; TEMP 97.7
--- NOTE | 2021-07-23 18:08 | US ---
EXAMINATION TYPE: Transabdominal DATE OF EXAM: 07/23/2021 5:55 PM COMPARISON: NONE CLINICAL HISTORY: vaginal bleeding . Patient presents with heavy vaginal bleeding and clotting in ear ly . EXAM PERFORMED: Transvaginal (TV) and Transabdominal (TA) EXAM MEASUREMENTS: GESTATIONAL AGE / DATING Physician Established: (9 weeks/0 days) EDC: 02/25/2022 Dates by First Scan: No previous this is first scan here Dates by Current Scan for: No IUP seen at this time MATERNAL ANATOMY Uterus: 13.0 x 5.4 x 6.2 cm Right Ovary: 4.1 x 2.2 x 1.9 cm - best seen transabdominally Left Ovary: 1.8 x 1.1 x 1.2 cm Post CDS / Adnexa: Right adnexa appears heterogenous Presence of free fluid: Possible fluid seen right adnexa Presence of corpus luteal cyst: Not seen Presence of subchorionic bleed: None noted GESTATION / SURVEY No IUP seen today. Patient states having prior ultrasound at 8 weeks. Beta HcG (if available): Not available at this time IMPRESSION: 1. No evidence of intrauterine gestational sac correlate with B-hCG. If positive this could represent early , ectopic and spontaneous . Follow up pelvic ultrasound in 5-7 days and serial beta hCG studies are recommended.
[2021-07-23 18:44] LABS: Basophils % (A) 0 %; Eosinophils # (A) 0.2 k/uL (0-0.7); Eosinophils % (A) 2 %; HCT 39.2 % (34.0-46.0); HGB 13.4 gm/dL (11.4-16.0); Lymphocytes # (A) 1.7 k/uL (1.0-4.8); Lymphocytes % (A) 13 %; MCH 32.2 pg (25.0-35.0); MCHC 34.1 g/dL (31.0-37.0); MCV 94.3 fL (80.0-100.0); Mean Platelet Volume 7.2; Monocytes # (A) 0.6 k/uL (0-1.0); Monocytes % (A) 4 %; Neutrophils # (A) 10.6 k/uL (1.3-7.7); Neutrophils % (A) 80 %; Platelet Count 324 k/uL (150-450); RBC 4.16 m/uL (3.80-5.40); RDW 12.7 % (11.5-15.5); WBC 13.2 k/uL (3.8-10.6)
[2021-07-23 19:02] LABS: HCG,Qualitative Serum Detected
[2021-07-23 19:09] LABS: ALT 14 U/L (4-34); AST 18 U/L (14-36); African American GFR (CKD) >90 (>60 ml/min/1.73 sqM); Albumin 4.2 g/dL (3.5-5.0); Alkaline Phosphatase 67 U/L (38-126); Anion Gap 8 mmol/L; Blood Urea Nitrogen 7 mg/dL (7-17); Calcium 9.4 mg/dL (8.4-10.2); Carbon Dioxide 23 mmol/L (22-30); Chloride 104 mmol/L (98-107); Glucose 96 mg/dL (74-99); Non-African American GFR(CKD) >90 (>60 ml/min/1.73 sqM); Potassium 4.4 mmol/L (3.5-5.1); Sodium 135 mmol/L (137-145); Total Bilirubin 0.6 mg/dL (0.2-1.3)
[2021-07-23] MEDS ORDERED: Rhogam IMMUNE GLOBULIN 1,500 UNIT/1 ML IM ONE (19:45)
--- NOTE | 2021-07-23 20:03 | ED ---
Female Urogenital HPI - General Chief complaint: Vaginal Bleeding Stated complaint: 9wks preg, bleeding Time Seen by Provider: 07/23/21 19:39 Source: patient Mode of arrival: ambulatory Limitations: no limitations - History of Present Illness Initial comments: Patient is a A0 female with positive at home tests 9 weeks ago who presents to the emergency department with a chief complaint of vaginal bleeding. Patient states that the bleeding started around 4 PM today. She now on her second pad and noticed one clot when she got to the emergency department. She reports mild bilateral pelvic cramping. Patient has not had first ultrasound yet but is scheduled with Dr. Burns. Patient has no other complaints at this time including fever, chills, shortness of breath, chest pain, nausea, vomiting, or dysuria. She denies history of ectopic . - Related Data Home Medications Medication Instructions Recorded Confirmed Beclomethasone Dipropionate [Qvar 2 puff INHALATION RT-BID 06/27/17 06/01/20 40 mcg] Ergocalciferol (Vitamin D2) 50,000 unit PO TU 06/27/17 06/01/20 [Vitamin D2] Atorvastatin [Lipitor] 40 mg PO HS 10/15/18 06/01/20 Cetirizine HCl [Zyrtec] 10 mg PO DAILY 10/15/18 06/01/20 Levothyroxine Sodium [Synthroid] 88 mcg PO DAILY 10/15/18 06/01/20 Albuterol Sulfate [Ventolin HFA] 1 - 2 puff INHALATION RT-Q6H PRN 06/01/20 06/01/20 Allergies Allergy/AdvReac Type Severity Reaction Status Date / Time No Known Allergies Allergy Verified 07/23/21 17:06 Review of Systems ROS Statement: Those systems with pertinent positive or pertinent negative responses have been documented in the HPI. ROS Other: All systems not noted in ROS Statement are negative. Past Medical History Past Medical History: Hypertension, Thyroid Disorder History of Any Multi-Drug Resistant Organisms: None Reported Additional Past Surgical History / Comment(s): eye Past Psychological History: No Psychological Hx Reported Smoking Status: Never smoker Past Alcohol Use History: None Reported Past Drug Use History: None Reported General Exam Limitations: no limitations Course Vital Signs 07/23/21 17:03 Temperature 97.7 F Pulse Rate 75 Respiratory 16 Rate Blood Pressure 148/85 O2 Sat by Pulse 100 Oximetry Medical Decision Making - Medical Decision Making This is a A 0 female at 9 weeks who presents with vaginal bleeding. Thorough history and examination were performed. Patient is hemodynamically stable. Laboratory studies are relatively unremarkable. Serum beta hCG is 4,460. Ultrasound reveals no evidence of intrauterine gestational sac, if beta HCG is positive, could be chemical sales representative of a , ectopic , or spontaneous . Rhogam was given. Results discussed with patient. Patient given prescription for repeat serum beta hCG in 2 days at her [facility] or primary care provider with instruction that she may need a follow-up ultrasound in 1 week. Return parameters discussed. Patient verbalizes understanding and is agreeable to plan. Dr. Holloway is my attending. - Lab Data Result diagrams: 07/23/21 18:37 07/23/21 18:37 Lab Results 07/23/21 07/23/21 07/23/21 Range/Units 18:37 18:37 18:37 WBC 13.2 H (3.8-10.6) k/uL RBC 4.16 (3.80-5.40) m/uL Hgb 13.4 (11.4-16.0) gm/dL Hct 39.2 (34.0-46.0) % MCV 94.3 (80.0-100.0) fL MCH 32.2 (25.0-35.0) pg MCHC 34.1 (31.0-37.0) g/dL RDW 12.7 (11.5-15.5) % Plt Count 324 (150-450) k/uL MPV 7.2 Neutrophils % 80 % Lymphocytes % 13 % Monocytes % 4 % Eosinophils % 2 % Basophils % 0 % Neutrophils # 10.6 H (1.3-7.7) k/uL Lymphocytes # 1.7 (1.0-4.8) k/uL Monocytes # 0.6 (0-1.0) k/uL Eosinophils # 0.2 (0-0.7) k/uL Basophils # 0.0 (0-0.2) k/uL Sodium 135 L (137-145) mmol/L Potassium 4.4 (3.5-5.1) mmol/L Chloride 104 (98-107) mmol/L Carbon Dioxide 23 (22-30) mmol/L Anion Gap 8 mmol/L BUN 7 (7-17) mg/dL Creatinine 0.64 (0.52-1.04) mg/dL Est GFR (CKD-EPI)AfAm >90 (>60 ml/min/1.73 sqM) Est GFR (CKD-EPI)NonAf >90 (>60 ml/min/1.73 sqM) Glucose 96 (74-99) mg/dL Calcium 9.4 (8.4-10.2) mg/dL Total Bilirubin 0.6 (0.2-1.3) mg/dL AST 18 (14-36) U/L ALT 14 (4-34) U/L Alkaline Phosphatase 67 (38-126) U/L Total Protein 7.0 (6.3-8.2) g/dL Albumin 4.2 (3.5-5.0) g/dL HCG, Qual Detected HCG, Quant mIU/mL Blood Type O Negative Blood Type Recheck O Neg Bld Type Recheck Status No Antibody Screen NEGATIVE Spec Expiration Date 07/26/2021 - 233607/23/21 Range/Units 19:44 WBC (3.8-10.6) k/uL RBC (3.80-5.40) m/uL Hgb (11.4-16.0) gm/dL Hct (34.0-46.0) % MCV (80.0-100.0) fL MCH (25.0-35.0) pg MCHC (31.0-37.0) g/dL RDW (11.5-15.5) % Plt Count (150-450) k/uL MPV Neutrophils % % Lymphocytes % % Monocytes % % Eosinophils % % Basophils % % Neutrophils # (1.3-7.7) k/uL Lymphocytes # (1.0-4.8) k/uL Monocytes # (0-1.0) k/uL Eosinophils # (0-0.7) k/uL Basophils # (0-0.2) k/uL Sodium (137-145) mmol/L Potassium (3.5-5.1) mmol/L Chloride (98-107) mmol/L Carbon Dioxide (22-30) mmol/L Anion Gap mmol/L BUN (7-17) mg/dL Creatinine (0.52-1.04) mg/dL Est GFR (CKD-EPI)AfAm (>60 ml/min/1.73 sqM) Est GFR (CKD-EPI)NonAf (>60 ml/min/1.73 sqM) Glucose (74-99) mg/dL Calcium (8.4-10.2) mg/dL Total Bilirubin (0.2-1.3) mg/dL AST (14-36) U/L ALT (4-34) U/L Alkaline Phosphatase (38-126) U/L Total Protein (6.3-8.2) g/dL Albumin (3.5-5.0) g/dL HCG, Qual HCG, Quant 4460.8 mIU/mL Blood Type Blood Type Recheck Bld Type Recheck Status Antibody Screen Spec Expiration Date Disposition Clinical Impression: Vaginal bleeding affecting early Disposition: HOME SELF-CARE Condition: Good Instructions (If sedation given, give patient instructions): Ectopic (DC), Threatened Miscarriage (ED) Additional Instructions: 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 You may need a repeat ultrasound in 1 week. Return to the emergency department if you experience new, concerning, or worsening symptoms, including but not limited to severe vaginal bleeding or abdominal pain. Is patient prescribed a controlled substance at d/c from ED?: No Referrals: Raina Brandt MD [Primary Care Provider] - 1-2 days
== END 2021-07-23 20:36 | disposition home or self-care (01) ==
LOC: EC 16:13
DX: O20.9 Hemorrhage in early pregnancy, unspecified (principal); O16.1 Unspecified maternal hypertension, first trimester; E07.9 Disorder of thyroid, unspecified; Z3A.09 9 weeks gestation of pregnancy
CPT/HCPCS: 99284 ×2; 96372 ×2; 36415; 86900; 86901; 80053; 85025; 86850; 84703; 84702; 76801; 76817; J2790

== ENCOUNTER 2022-04-27 13:17 | Emergency (ER) | payer OTHER ==
[2022-04-27 13:24] VITALS: BP 144/79; PULSE 87; RESP 16; TEMP 98.6
[2022-04-27] MEDS ORDERED: CEPHALEXIN 500MG STARTER PACK 4 CAP BTL PO STA (13:34)
--- NOTE | 2022-04-27 13:38 | ED ---
General Adult HPI - General Chief complaint: ENT Stated complaint: throat pain Time Seen by Provider: 04/27/22 13:27 Source: patient, RN notes reviewed Mode of arrival: ambulatory Limitations: no limitations - History of Present Illness Initial comments: Patient is a pleasant 37-year-old female presenting to the emergency department with concern with sore throat. Onset of symptoms was several days ago. Patient states it hurts to swallow. Patient has noticed lymph nodes that are tender. Patient did have cough couple weeks ago however that has resolved. Patient did test negative for COVID-19 infection a couple of days ago. No history of chronic similar symptoms. No congestion. - Related Data Home Medications Medication Instructions Recorded Confirmed Beclomethasone Dipropionate [Qvar 2 puff INHALATION RT-BID 06/27/17 06/01/20 40 mcg] Ergocalciferol (Vitamin D2) 50,000 unit PO TU 06/27/17 06/01/20 [Vitamin D2] Atorvastatin [Lipitor] 40 mg PO HS 10/15/18 06/01/20 Cetirizine HCl [Zyrtec] 10 mg PO DAILY 10/15/18 06/01/20 Levothyroxine Sodium [Synthroid] 88 mcg PO DAILY 10/15/18 06/01/20 Albuterol Sulfate [Ventolin HFA] 1 - 2 puff INHALATION RT-Q6H PRN 06/01/20 06/01/20 Previous Rx's Medication Instructions Recorded Cephalexin [Keflex] 500 mg PO QID #28 cap 04/27/22 Allergies Allergy/AdvReac Type Severity Reaction Status Date / Time No Known Allergies Allergy Verified 04/27/22 13:22 Review of Systems ROS Statement: Those systems with pertinent positive or pertinent negative responses have been documented in the HPI. ROS Other: All systems not noted in ROS Statement are negative. Constitutional: Denies: fever Eyes: Denies: eye pain ENT: Reports: throat pain Respiratory: Denies: dyspnea Cardiovascular: Denies: chest pain Endocrine: Denies: fatigue Gastrointestinal: Denies: abdominal pain Genitourinary: Denies: urgency Musculoskeletal: Denies: back pain Skin: Denies: rash Neurological: Denies: weakness Past Medical History Past Medical History: Hypertension, Thyroid Disorder History of Any Multi-Drug Resistant Organisms: None Reported Additional Past Surgical History / Comment(s): eye Past Psychological History: No Psychological Hx Reported Smoking Status: Never smoker Past Alcohol Use History: None Reported Past Drug Use History: None Reported General Exam Limitations: no limitations General appearance: alert, in no apparent distress Head exam: Present: normocephalic Eye exam: Present: normal appearance ENT exam: Present: other (Mouth. She'll erythema) Neck exam: Present: lymphadenopathy (Mild, with associated tenderness) Respiratory exam: Present: normal lung sounds bilaterally Cardiovascular Exam: Present: regular rate, normal rhythm Extremities exam: Present: normal inspection Neurological exam: Present: alert Psychiatric exam: Present: normal affect, normal mood Skin exam: Present: normal color Course Vital Signs 04/27/22 13:22 Temperature 98.6 F Pulse Rate 87 Respiratory 16 Rate Blood Pressure 144/79 O2 Sat by Pulse 96 Oximetry Disposition Clinical Impression: Pharyngitis Disposition: HOME SELF-CARE Condition: Stable Instructions (If sedation given, give patient instructions): Pharyngitis (ED) Additional Instructions: Please do follow-up to primary care physician in the next couple days for recheck. Return for unable to tolerate fluids, uncontrolled fever, difficulty breathing, worsening or changing symptoms or any other concerns. Prescription has been sent to pharmacy. Prescriptions: Cephalexin [Keflex] 500 mg PO QID #28 cap Is patient prescribed a controlled substance at d/c from ED?: No Referrals: Raina Brandt MD [Primary Care Provider] - 1-2 days Time of Disposition: 13:38
== END 2022-04-27 13:50 | disposition home or self-care (01) ==
LOC: EC 13:17
DX: J02.9 Acute pharyngitis, unspecified (principal); I10 Essential (primary) hypertension; E07.9 Disorder of thyroid, unspecified; Z79.890 Hormone replacement therapy; Z79.899 Other long term (current) drug therapy
CPT/HCPCS: 99282

== ENCOUNTER 2022-05-06 18:05 | Emergency (ER) | payer OTHER ==
[2022-05-06 18:19] VITALS: BP 165/82; PULSE 76; RESP 18; TEMP 97.2
--- NOTE | 2022-05-06 19:33 | ED ---
General Adult HPI - General Chief complaint: Recheck/Abnormal Lab/Rx Stated complaint: lab recheck Time Seen by Provider: 05/06/22 19:02 Source: patient, RN notes reviewed Mode of arrival: ambulatory Limitations: no limitations - History of Present Illness Initial comments: Patient presents to the emergency stating she is 3 weeks . Patient rese nts a car that she got when she had a RhoGAM shot in July of this year. At that time the patient had vaginal bleeding ended up having a miscarriage. Patient was confused because they can't states it has an expiration date of 05/11/2022. However this pertains to the last number of the RhoGAM shot she received in July. Patient has no symptoms this time. No vaginal bleeding. No dysuria. No headache, no fever or chills, no changes in vision or hearing, no sore throat or difficulty with speech, no neck pain, no chest pain or shortness of breath, no abdominal pain, no nausea or vomiting, no changes in urination or bowel movements, no numbness or tingling, no extremity pain, no skin rashes or lesions. Past medical, surgical, social, and family history reviewed. - Related Data Home Medications Medication Instructions Recorded Confirmed Beclomethasone Dipropionate [Qvar 2 puff INHALATION RT-BID 06/27/17 06/01/20 40 mcg] Ergocalciferol (Vitamin D2) 50,000 unit PO TU 06/27/17 06/01/20 [Vitamin D2] Atorvastatin [Lipitor] 40 mg PO HS 10/15/18 06/01/20 Cetirizine HCl [Zyrtec] 10 mg PO DAILY 10/15/18 06/01/20 Levothyroxine Sodium [Synthroid] 88 mcg PO DAILY 10/15/18 06/01/20 Albuterol Sulfate [Ventolin HFA] 1 - 2 puff INHALATION RT-Q6H PRN 06/01/20 06/01/20 Previous Rx's Medication Instructions Recorded Cephalexin [Keflex] 500 mg PO QID #28 cap 04/27/22 Allergies Allergy/AdvReac Type Severity Reaction Status Date / Time No Known Allergies Allergy Verified 05/06/22 18:19 Review of Systems ROS Statement: Those systems with pertinent positive or pertinent negative responses have been documented in the HPI. ROS Other: All systems not noted in ROS Statement are negative. Past Medical History Past Medical History: Hypertension, Thyroid Disorder History of Any Multi-Drug Resistant Organisms: None Reported Additional Past Surgical History / Comment(s): eye Past Psychological History: No Psychological Hx Reported Smoking Status: Never smoker Past Alcohol Use History: None Reported Past Drug Use History: None Reported General Exam Limitations: no limitations General appearance: alert, in no apparent distress Head exam: Present: atraumatic, normocephalic, normal inspection Eye exam: Present: normal appearance, EOMI Neck exam: Present: normal inspection Respiratory exam: Present: normal lung sounds bilaterally. Absent: respiratory distress, wheezes, rales, rhonchi, stridor Cardiovascular Exam: Present: regular rate, normal rhythm, normal heart sounds. Absent: systolic murmur, diastolic murmur, rubs, gallop, clicks GI/Abdominal exam: Present: soft. Absent: tenderness Back exam: Present: normal inspection Neurological exam: Present: alert, oriented X3, CN II-XII intact Psychiatric exam: Present: normal affect, normal mood Course Vital Signs 05/06/22 18:15 Temperature 97.2 F L Pulse Rate 76 Respiratory 18 Rate Blood Pressure 165/82 O2 Sat by Pulse 98 Oximetry Medical Decision Making - Medical Decision Making Patient presented to the emergency department confused about the cart she received when she received RhoGAM shot in July. Had an expiration date for that RhoGAM shot/Lot number. Expiration date was 05/11/2022. Patient has no bleeding or symptoms with this . She is 3 weeks by dates. Did touch base with Dr. Sneed who suggested against giving any RhoGAM shot today. She states that her service bleeding or some other reason to get a shot given at 28 weeks gestation. I did relay all of this information to the patient who concurs with this plan. Patient was told to return to the ER for any signs or symptoms worsen. Told to return immediately if any other problems arise. All questions answered. Treatment plan discussed. Patient in agreement Every effort has been made to ensure accuracy of this dictation. However, due to the limitations of electronic medical records and dictation devices, errors in charting still occur. Dimitri or Dr. Hansen Disposition Clinical Impression: Suspected condition not found Disposition: HOME SELF-CARE Condition: Good Instructions (If sedation given, give patient instructions): (ED) Additional Instructions: Follow-up with your regular physician as directed. Return to the ER immediately if any symptoms worsen, new symptoms arise, or any other problems develop. Is patient prescribed a controlled substance at d/c from ED?: No Referrals: Raina Brandt MD [Primary Care Provider] - 1-2 days Time of Disposition: 19:33
== END 2022-05-06 20:01 | disposition home or self-care (01) ==
LOC: EC 18:05
DX: Z03.89 Encounter for observation for other suspected diseases and conditions ruled out (principal); I10 Essential (primary) hypertension; E07.9 Disorder of thyroid, unspecified; Z79.890 Hormone replacement therapy; Z79.899 Other long term (current) drug therapy
CPT/HCPCS: 99283

== ENCOUNTER 2022-06-14 04:57 | Emergency (ER) | payer OTHER ==
[2022-06-14 05:10] VITALS: BP 156/74; PULSE 74; RESP 15; TEMP 98.1
[2022-06-14] MEDS ORDERED: ETODOLAC 400 MG TAB PO STA (05:11)
[2022-06-14] MEDS ORDERED: Acetaminophen-Codeine 300-30mg TAB PO STA (05:11)
--- NOTE | 2022-06-14 05:12 | ED ---
Neck Injury/Pain HPI - General Chief Complaint: Neck Pain/Injury Stated Complaint: NECK PAIN Time Seen by Provider: 06/14/22 05:04 Source: RN notes reviewed, old records reviewed Mode of arrival: EMS Limitations: no limitations - History of Present Illness Initial Comments: This is a 37-year-old female to the ER for evaluation. Patient presents today f or tightness of the neck tenderness to the posterior aspect of the lower neck upper back area. No traumatic injury or fall. Patient states she woke up this way about 2-3 days ago symptoms of been persistent no help with Motrin or Tylenol. Patient has no other complaints no sore throat no shortness of breath MD Complaint: neck pain, neck injury, upper back pain -: days(s) (3) Place: home Radiation: right lateral, left lateral, upper back Severity: moderate Severity scale (1-10): 3 Quality: sharp Consistency: intermittent Improves With: none Worsens With: none Context: unknown Associated Symptoms: none Treatments Prior to Arrival: Acetaminophen, Ibuprofen - Related Data Home Medications Medication Instructions Recorded Confirmed Beclomethasone Dipropionate [Qvar 2 puff INHALATION RT-BID 06/27/17 06/01/20 40 mcg] Ergocalciferol (Vitamin D2) 50,000 unit PO TU 06/27/17 06/01/20 [Vitamin D2] Atorvastatin [Lipitor] 40 mg PO HS 10/15/18 06/01/20 Cetirizine HCl [Zyrtec] 10 mg PO DAILY 10/15/18 06/01/20 Levothyroxine Sodium [Synthroid] 88 mcg PO DAILY 10/15/18 06/01/20 Albuterol Sulfate [Ventolin HFA] 1 - 2 puff INHALATION RT-Q6H PRN 06/01/20 06/01/20 Previous Rx's Medication Instructions Recorded Cephalexin [Keflex] 500 mg PO QID #28 cap 04/27/22 Allergies Allergy/AdvReac Type Severity Reaction Status Date / Time No Known Allergies Allergy Verified 06/14/22 05:07 Review of Systems ROS Statement: Those systems with pertinent positive or pertinent negative responses have been documented in the HPI. ROS Other: All systems not noted in ROS Statement are negative. Past Medical History Past Medical History: Hypertension, Thyroid Disorder History of Any Multi-Drug Resistant Organisms: None Reported Additional Past Surgical History / Comment(s): eye Past Psychological History: No Psychological Hx Reported Smoking Status: Never smoker Past Alcohol Use History: None Reported Past Drug Use History: None Reported General Exam Limitations: no limitations General appearance: alert, in no apparent distress Head exam: Present: atraumatic, normocephalic, normal inspection Eye exam: Present: normal appearance, PERRL, EOMI. Absent: scleral icterus, conjunctival injection, periorbital swelling ENT exam: Present: normal exam, mucous membranes moist Neck exam: Present: normal inspection. Absent: tenderness, meningismus, lymphadenopathy Respiratory exam: Present: normal lung sounds bilaterally. Absent: respiratory distress, wheezes, rales, rhonchi, stridor Cardiovascular Exam: Present: regular rate, normal rhythm, normal heart sounds. Absent: systolic murmur, diastolic murmur, rubs, gallop, clicks GI/Abdominal exam: Present: soft, normal bowel sounds. Absent: distended, tenderness, guarding, rebound, rigid Extremities exam: Present: normal inspection, full ROM, normal capillary refill. Absent: tenderness, pedal edema, joint swelling, calf tenderness Back exam: Present: normal inspection Neurological exam: Present: alert, oriented X3, CN II-XII intact Psychiatric exam: Present: normal affect, normal mood Skin exam: Present: warm, dry, intact, normal color. Absent: rash Course Vital Signs 06/14/22 05:07 Temperature 98.1 F Pulse Rate 74 Respiratory 15 Rate Blood Pressure 156/74 O2 Sat by Pulse 100 Oximetry - Reevaluation(s) Reevaluation #1: 06/14/22 06:51 Medical record is reviewed Reevaluation #2: 06/14/22 06:51 Patient informed results questions answered Reevaluation #3: 06/14/22 06:51 Patient does have improvement of symptoms here in the ER Reevaluation #4: 06/14/22 06:51 Was pt. sent in by a medical professional or institution? @ -no Did you speak to anyone other than the patient for history? @ -no Did you review nursing and triage notes? @ -madelyn accurate Were old charts reviewed? @ -no Differential Diagnosis? @ -prior EKG interpreted by me (3pts min.)? @ -yes X-rays interpreted by me (1pt min.)? @ -yes CT interpreted by me (1pt min.)? @ -[none] U/S interpreted by me (1pt. min.)? @ -[none] What testing was considered but not performed? (CT, X-rays, U/S, labs)? Why? @ _no What meds were considered but not given? Why? @ -[none] Did you discuss the moent of the patient with other professionals? @ -no Did you reconcile home meds? @ -[none] Was smoking cessation discussed for >3mins.? @ -[none] Was critical care preformed (if so, how long)? @ -[none] Were there social determinants of health that impacted care today? How? (Homelessness, low income, unemployed, alcoholism, drug addiction, transportation, low edu. Level, literacy, decrease access to med. care, skilled nursing, rehab)? @ -no Was there de-escalation of care discussed even if they declined? (Discuss DNR or withdrawal of care, Hospice)? @ -no What co-morbidities impacted this encounter? (DM, HTN, Smoking, COPD, CAD, Cancer, CVA, Hep., AIDS, mental health diagnosis, sleep apnea, morbid obesity)? @ -no Was patient admitted / discharged? @ -no Undiagnosed new problem with uncertain prognosis? @ -no Drug Therapy requiring intensive monitoring for toxicity (Heparin, Nitro, Insulin, Cardizem)? @ -[none] Were any procedures done? @ -[none] Diagnosis/symptom? @ -[default] Acute, or Chronic, or Acute on Chronic? @ -[default] Uncomplicated (without systemic symptoms) or Complicated (systemic symptoms)? @ -[default] Side effects of treatment? @ -[none] Exacerbation, Progression, or Severe Exacerbation] @ -[no] Poses a threat to life or bodily function? @ -[no] Medical Decision Making - Medical Decision Making 37 female DF status post post-waking up with neck pain 3-4 days. Pain is worse with movement worse to touch is upper back or neck area. Patient has normal x- ray pain improved here in the ER and can be discharged home to the emergency department - Radiology Data Radiology results: report reviewed (x-ray soft tissue neck negative for acute disease), image reviewed Disposition Clinical Impression: Strain of neck muscle, Neck pain Disposition: HOME SELF-CARE Condition: Good Instructions (If sedation given, give patient instructions): Cervical Strain (ED), Cervical Sprain (ED) Is patient prescribed a controlled substance at d/c from ED?: No Referrals: Raina Brandt MD [Primary Care Provider] - 1-2 days Time of Disposition: 05:35
--- NOTE | 2022-06-14 05:24 | XR ---
EXAMINATION TYPE: XR soft tissue neck DATE OF EXAM: 06/14/2022 COMPARISON: NONE HISTORY: Left-sided neck pain TECHNIQUE: 2 views FINDINGS: Epiglottis is normal. Prevertebral soft tissues appear normal. The tonsils and adenoids parvin ear normal. Subglottic trachea is normal. No evidence of a mass. IMPRESSION: Normal cervical soft tissue exam.
[2022-06-14] MEDS ORDERED: IBUPROFEN 600 MG STARTER PACK 4 TAB BTL PO STA (05:36)
[2022-06-14] MEDS ORDERED: ONDANSETRON 4 MG ODT STARTER PACK 2 TAB BTL PO STA (05:36)
[2022-06-14] MEDS ORDERED: traMADol 50 MG STARTER PACK 3 TAB BTL PO STA (05:36)
== END 2022-06-14 05:41 | disposition home or self-care (01) ==
LOC: EC 04:57
DX: S16.1XXA Strain of muscle, fascia and tendon at neck level, initial encounter (principal); I10 Essential (primary) hypertension; E07.9 Disorder of thyroid, unspecified; Z79.890 Hormone replacement therapy; X58.XXXA Exposure to other specified factors, initial encounter
CPT/HCPCS: 70360; 99283

== ENCOUNTER 2023-03-24 16:09 | Emergency (ER) | payer OTHER ==
[2023-03-24 16:25] VITALS: BP 134/84; PULSE 98; RESP 17; TEMP 99
--- NOTE | 2023-03-24 16:51 | ED ---
General Adult HPI - General Chief complaint: Extremity Injury, Lower Stated complaint: fall Time Seen by Provider: 03/24/23 16:18 Source: patient, RN notes reviewed Mode of arrival: ambulatory Limitations: no limitations - History of Present Illness Initial comments: 38-year-old female with no significant past medical history presents the emergency department with left ankle pain. That she tripped on some steps late last night. She reports increased pain and swelling to her left ankle and foot. She denies any numbness, tingling, weakness. She vomited evening versus symptoms. Patient reports pain with ambulation. - Related Data Home Medications Medication Instructions Recorded Confirmed Beclomethasone Dipropionate [Qvar 2 puff INHALATION RT-BID 06/27/17 06/01/20 40 mcg] Ergocalciferol (Vitamin D2) 50,000 unit PO TU 06/27/17 06/01/20 [Vitamin D2] Atorvastatin [Lipitor] 40 mg PO HS 10/15/18 06/01/20 Cetirizine HCl [Zyrtec] 10 mg PO DAILY 10/15/18 06/01/20 Levothyroxine Sodium [Synthroid] 88 mcg PO DAILY 10/15/18 06/01/20 Albuterol Sulfate [Ventolin HFA] 1 - 2 puff INHALATION RT-Q6H PRN 06/01/20 06/01/20 Previous Rx's Medication Instructions Recorded Cephalexin [Keflex] 500 mg PO QID #28 cap 04/27/22 HYDROcodone/APAP 5-325MG [Corry 5] 1 each PO Q6HR PRN #12 tab 03/24/23 Ibuprofen [Motrin] 800 mg PO Q6HR #30 tab 03/24/23 Allergies Allergy/AdvReac Type Severity Reaction Status Date / Time No Known Allergies Allergy Verified 03/24/23 16:16 Review of Systems ROS Statement: Those systems with pertinent positive or pertinent negative responses have been documented in the HPI. ROS Other: All systems not noted in ROS Statement are negative. Past Medical History Past Medical History: Hypertension, Thyroid Disorder History of Any Multi-Drug Resistant Organisms: None Reported Additional Past Surgical History / Comment(s): eye Past Psychological History: No Psychological Hx Reported Smoking Status: Never smoker Past Alcohol Use History: None Reported Past Drug Use History: None Reported General Exam - General Exam Comments Initial Comments: General: Alert, in no acute distress Head: atraumatic normocephalic. Eyes PERRL, EOMI intact, mucous membranes moist Respiratory: Lungs clear to auscultation bilaterally Cardiovascular heart rate regular rate and rhythm: Abdominal: Soft without guarding or rebound Extremities: Normal inspection with full range of motion and normal capillary refill, left foot and ankle with generalized edema. No ecchymosis. Generalized tenderness. Limited range of motion secondary to pain. 2+ DP/PT pulses. Distal neurovascular intact. No crepitus. Neuroogic: alert and oriented 3, CN II-XII intact, able to ambulate with steady gait Skin: warm dry and intact with normal color Limitations: no limitations Course Vital Signs 03/24/23 16:13 Temperature 99.0 F Pulse Rate 98 Respiratory 17 Rate Blood Pressure 134/84 O2 Sat by Pulse 97 Oximetry - Reevaluation(s) Reevaluation #1: 03/24/23 19:04 Should reevaluated and updated on results. Posterior mold applied. Procedures - Orthopedic Splinting/Casting Injury #1 Side: left Lower Extremity Injury Location: foot Lower Extremity Immobilizer: posterior splint Medical Decision Making - Medical Decision Making Was pt. sent in by a medical professional or institution (, PA, SECONDARY EDUCATION PROFESSOR, urgent care, hospital, or [facility]...) When possible be specific @ -[No] Did you speak to anyone other than the patient for history (EMS, parent, family, police, friend...)? What history was obtained from this source @ -[No] Did you review nursing and triage notes (agree or disagree)? Why? @ -[I reviewed and agree with nursing and triage notes] Were old charts reviewed (outside hosp., previous admission, EMS record, old EKG, old radiological studies, urgent care reports/EKG's, [facility] records)? Report findings @ -[No old charts were reviewed] Differential Diagnosis (chest pain, altered mental status, abdominal pain women, abdominal pain men, vaginal bleeding, weakness, fever, dyspnea, syncope, headache, dizziness, GI bleed, back pain, seizure, CVA, palpatations, mental health, musculoskeletal)? @ -[not applicable] EKG interpreted by me (3pts min.). @ -[As above] X-rays interpreted by me (1pt min.). @ -left 5th Metatarsal fracture CT interpreted by me (1pt min.). @ -[None done] U/S interpreted by me (1pt. min.). @ -[None done] What testing was considered but not performed or refused? (CT, X-rays, U/S, labs)? Why? @ -[None] What meds were considered but not given or refused? Why? @ -[None] Did you discuss the management of the patient with other professionals (professionals i.e. , PA, SECONDARY EDUCATION PROFESSOR, lab, RT, psych nurse, social services coordinator, grounds caretaker, teacher, professional security officer, disease case manager rn)? Give summary @ -[No] Was smoking cessation discussed for >3mins.? @ -[No] Was critical care preformed (if so, how long)? @ -[No] Were there social determinants of health that impacted care today? How? (Homelessness, low income, unemployed, alcoholism, drug addiction, transportation, low edu. Level, literacy, decrease access to med. care, [facility], rehab)? @ -[No] Was there de-escalation of care discussed even if they declined (Discuss DNR or withdrawal of care, Hospice)? DNR status @ -[No] What co-morbidities impacted this encounter? (DM, HTN, Smoking, COPD, CAD, Cancer, CVA, ARF, Chemo, Hep., AIDS, mental health diagnosis, sleep apnea, morbid obesity)? @ -[None] Was patient admitted / discharged? Hospital course, mention meds given and route, prescriptions, significant lab abnormalities, going to OR and other pertinent info. @ Discharged. This is a 38-year-old female presents emergency department with left foot pain. Patient goes to physical exam performed. Physical exam reveals small area of ecchymosis near the left fifth metatarsal region. No crepitus noted. Limited range of motion secondary to pain. 2+ DP/PT pulses. Patient x-ray reveals left fifth metatarsal fracture. Discussed results in detail with the patient verbalized understanding all questions were addressed. Patient placed in posterior mold splint. Distal neurovascularly intact status post placement. She was offered crutches however she reports she has at home. Patient provided prescription for Corry Motrin 800. Return precautions discussed at length. Patient discharged in stable condition. Case discussed with Dr. zapata, ECP who agrees with plan of care Undiagnosed new problem with uncertain prognosis? @ -[No] Drug Therapy requiring intensive monitoring for toxicity (Heparin, Nitro, Insulin, Cardizem)? @ -[No] Were any procedures done? @ -[No] Diagnosis/symptom? @ -Left 5th metatarsal fracture Acute, or Chronic, or Acute on Chronic? @ -Acute Uncomplicated (without systemic symptoms) or Complicated (systemic symptoms)? @ -Uncomplicated Side effects of treatment? @ -[No] Exacerbation, Progression, or Severe Exacerbation? @ -[No] Poses a threat to life or bodily function? How? (Chest pain, [place], [place], pneumonia, PE, COPD, DKA, ARF, appy, cholecystitis, CVA, Diverticulitis, Homicidal, Suicidal, threat to staff... and all critical care pts) @ -Low likelihood Disposition Clinical Impression: Fracture of 5th metatarsal Disposition: HOME SELF-CARE Condition: Stable Instructions (If sedation given, give patient instructions): Foot Fracture in Adults (ED) Additional Instructions: Please take Motrin for pain Elevate when able Apply ice or heat for 15 minutes at a time Please return to the nearest emergency department if symptoms worsen or persist Prescriptions: Ibuprofen [Motrin] 800 mg PO Q6HR #30 tab HYDROcodone/APAP 5-325MG [Corry 5] 1 each PO Q6HR PRN #12 tab PRN Reason: Pain Is patient prescribed a controlled substance at d/c from ED?: No Referrals: Raina Brandt MD [Primary Care Provider] - 1-2 days Rosenda Olivares DO [Doctor of Osteopathic Medicine] - 1-2 days Time of Disposition: 18:58
[2023-03-24] MEDS ORDERED: IBUPROFEN 800 MG TAB PO STA (16:52)
--- NOTE | 2023-03-24 18:38 | XR ---
EXAMINATION TYPE: XR foot complete LT DATE OF EXAM: 03/24/2023 COMPARISON: 03/26/2016 HISTORY: Foot pain and ankle pain TECHNIQUE: 3 view left foot FINDINGS: There is a transverse fracture at the base of fifth metatarsal. No acute fracture or dislocation is evident elsewhere within the foot. Alignment appears preserved. J oint spaces are preserved. Plantar calcaneal heel spur is present. IMPRESSION: 1. Transverse fracture base of the fifth metatarsal
--- NOTE | 2023-03-24 18:38 | XR ---
EXAMINATION TYPE: XR ankle complete LT DATE OF EXAM: 03/24/2023 COMPARISON: None HISTORY: Foot pain and ankle pain TECHNIQUE: 3 view left ankle FINDINGS: Large plantar calcaneal heel spurs present. No acute fractures of the ankle are evident. The ankle mortise is intact. Soft tissue swelling is ove r the lateral malleolus. Note is made of a transverse fracture base of the fifth metatarsal within the foot. IMPRESSION: 1. Soft tissue swelling at the ankle. No underlying fracture of the ankle is evident. 2. Transverse fracture base fifth metatarsal.
== END 2023-03-24 19:15 | disposition home or self-care (01) ==
LOC: EC 16:09
DX: S92.352A Displaced fracture of fifth metatarsal bone, left foot, initial encounter for closed fracture (principal); I10 Essential (primary) hypertension; E07.9 Disorder of thyroid, unspecified; Z79.890 Hormone replacement therapy; Z79.51 Long term (current) use of inhaled steroids; Z79.899 Other long term (current) drug therapy; W01.0XXA Fall on same level from slipping, tripping and stumbling without subsequent striking against object, initial encounter
CPT/HCPCS: 29515; 99283

== ENCOUNTER 2024-02-13 17:16 | Emergency (ER) | payer OTHER ==
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
[2024-02-13] MEDS: KETOROLAC 15 MG/ML 1 ML VIAL IM STA (18:37)
[2024-02-13] MEDS: ORPHENADRINE 30 MG/ML 2 ML VIAL IM STA (18:38)
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
[2024-02-13 20:00] VITALS: BP 137/98; PULSE 65; RESP 16; TEMP 98
== END 2024-02-13 20:05 | disposition home or self-care (01) ==
LOC: EC 17:16
DX: M54.2 Cervicalgia (principal); Y92.411 Interstate highway as the place of occurrence of the external cause
CPT/HCPCS: 72050; 96372; 99284

== ENCOUNTER 2024-09-19 09:44 | Emergency (ER) | payer OTHER ==
[2024-09-19 09:50] VITALS: BP 157/98; PULSE 84; RESP 18; TEMP 98
--- NOTE | 2024-09-19 10:22 | ED ---
Female Urogenital HPI - General Chief complaint: Vaginal Bleeding Stated complaint: vaginal bleeding Time Seen by Provider: 09/19/24 10:22 Source: patient, family, RN notes reviewed Mode of arrival: ambulatory Limitations: no limitations - History of Present Illness Initial comments: 39-year-old G4, female presenting to the ER for evaluation of vaginal bleeding. Patient reports her last menstrual cycle was on 09-13-2024. She states her menstrual cycle was "spotting". This morning patient began to experience heavy vaginal bleeding along with clots. She also was endorsing mild lower abdominal cramping. She is currently rating her discomfort a 3 out of 10. She denies any radiation of this cramping abdominal pain. She also reports she recently has been nauseous but denies any vomiting, diarrhea/constipation, dysuria or increase in frequency. She does not currently have an DANCING INSTRUCTOR and has not followed up with one in approximately 13 years. She denies any fevers or chills. She does admit to receiving RhoGAM with prior pregnancies. No other complaints. - Related Data Home Medications Medication Instructions Recorded Confirmed Beclomethasone Dipropionate [Qvar 2 puff INHALATION RT-BID 06/27/17 06/01/20 40 mcg] Ergocalciferol (Vitamin D2) 50,000 unit PO TU 06/27/17 06/01/20 [Vitamin D2] Atorvastatin [Lipitor] 40 mg PO HS 10/15/18 06/01/20 Cetirizine HCl [Zyrtec] 10 mg PO DAILY 10/15/18 06/01/20 Levothyroxine Sodium [Synthroid] 88 mcg PO DAILY 10/15/18 06/01/20 Albuterol Sulfate [Ventolin HFA] 1 - 2 puff INHALATION RT-Q6H PRN 06/01/20 06/01/20 Previous Rx's Medication Instructions Recorded Cephalexin [Keflex] 500 mg PO QID #28 cap 04/27/22 HYDROcodone/APAP 5-325MG [[place] 5] 1 each PO Q6HR PRN #12 tab 03/24/23 Ibuprofen [Motrin] 800 mg PO Q6HR #30 tab 03/24/23 Cyclobenzaprine [Flexeril] 10 mg PO TID PRN #15 tab 02/13/24 Cxm-Xxez-Nretp Acid 1 each PO DAILY #30 cap 09/19/24 [-U Capsule] Allergies Allergy/AdvReac Type Severity Reaction Status Date / Time No Known Allergies Allergy Verified 09/19/24 09:50 Review of Systems ROS Statement: Those systems with pertinent positive or pertinent negative responses have been documented in the HPI. ROS Other: All systems not noted in ROS Statement are negative. Past Medical History Past Medical History: Hypertension, Thyroid Disorder History of Any Multi-Drug Resistant Organisms: None Reported Past Surgical History: Section Additional Past Surgical History / Comment(s): eye Past Psychological History: No Psychological Hx Reported Smoking Status: Never smoker Past Alcohol Use History: None Reported Past Drug Use History: None Reported General Exam Limitations: no limitations General appearance: alert, in no apparent distress Respiratory exam: Present: normal lung sounds bilaterally. Absent: respiratory distress, wheezes, rales, rhonchi, stridor Cardiovascular Exam: Present: regular rate, normal rhythm, normal heart sounds. Absent: systolic murmur, diastolic murmur, rubs, gallop, clicks GI/Abdominal exam: Present: soft, tenderness (mild lower), normal bowel sounds External exam: Present: normal external exam Speculum exam: Present: vaginal bleeding (mild with clots) Neurological exam: Present: alert, oriented X3, CN II-XII intact Skin exam: Present: warm, dry, intact, normal color. Absent: rash Course Vital Signs 09/19/24 09:47 Temperature 98 F Pulse Rate 84 Respiratory 18 Rate Blood Pressure 157/98 O2 Sat by Pulse 99 Oximetry - Reevaluation(s) Reevaluation #1: 09/19/24 10:27 Exam performed and chaperoned by Ml SORENSEN. Reevaluation #2: 09/19/24 12:35 Case discussed with on-call DANCING INSTRUCTOR, Dr. Guido. She requested me to contact L&D regarding patient so she can follow-up on repeat hcg is 48 hours. Medical Decision Making - Medical Decision Making Was pt. sent in by a medical professional or institution (, PA, CORPORATE LEARNING CONSULTANT, urgent care, hospital, or usp...) When possible be specific @ -No Did you speak to anyone other than the patient for history (EMS, parent, family, police, friend...)? What history was obtained from this source @ -Patient's , bedside, aiding in HPI and past medical history. Did you review nursing and triage notes (agree or disagree)? Why? @ -I reviewed and agree with nursing and triage notes Were old charts reviewed (outside hosp., previous admission, EMS record, old EKG, old radiological studies, urgent care reports/EKG's, usp records)? Report findings @ -No old charts were reviewed Differential Diagnosis (chest pain, altered mental status, abdominal pain women, abdominal pain men, vaginal bleeding, weakness, fever, dyspnea, syncope, headache, dizziness, GI bleed, back pain, seizure, CVA, palpatations, mental health, musculoskeletal)? @ -Differential Vaginal Bleeding: Spontaneous , threatened , molar , ectopic , bloody show, incompetent cervix, abruptioplacenta, placenta previa, uterine rupture, dysfunctional uterine bleeding, hemorrhage, uterine fibroids, this is not meant to be an all-inclusive list. EKG interpreted by me (3pts min.). @ -None done X-rays interpreted by me (1pt min.). @ -None done CT interpreted by me (1pt min.). @ -None done U/S interpreted by me (1pt. min.). @ -[ ultrasound showing no IUP. Endometrium stripe is approximately 19 mm in thickness. No free fluid in pelvis. Bilateral ovaries not clearly seen there are no suspicious adnexal masses. What testing was considered but not performed or refused? (CT, X-rays, U/S, labs)? Why? @ -None What meds were considered but not given or refused? Why? @ -None Did you discuss the management of the patient with other professionals (professionals i.e. , PA, CORPORATE LEARNING CONSULTANT, lab, RT, psych nurse, social science analyst, dry house worker, teacher, chief compliance officer, skilled nursing case manager)? Give summary @ -Yes, case discussed with on-call DANCING INSTRUCTOR, . She advised on repeat hCG in 48 hours. She also requested that I contact labor and delivery and give them patient information so she can follow-up patient's repeat hCG. Was smoking cessation discussed for >3mins.? @ -No Was critical care preformed (if so, how long)? @ -No Were there social determinants of health that impacted care today? How? (Home lessness, low income, unemployed, alcoholism, drug addiction, transportation, low edu. Level, literacy, decrease access to med. care, shelter, rehab)? @ -No Was there de-escalation of care discussed even if they declined (Discuss DNR or withdrawal of care, Hospice)? DNR status @ -No What co-morbidities impacted this encounter? (DM, HTN, Smoking, COPD, CAD, Cancer, CVA, ARF, Chemo, Hep., AIDS, mental health diagnosis, sleep apnea, morbid obesity)? @ - Was patient admitted / discharged? Hospital course, mention meds given and route, prescriptions, significant lab abnormalities, going to OR and other pertinent info. @ -Discharge. 39-year-old female presented the ER for evaluation of vaginal bleeding. Patient is G4, . Upon arrival vitals within acceptable limits. Upon my evaluation, patient in no significant distress nontoxic-appearing. Abdominal exam remarkable for tenderness to palpation of bilateral lower quadrants. There is no rebound tenderness or guarding. Pelvic exam performed and chaperoned by Ml SORENSEN. There is mild cervical bleeding noted clots are present. Cervix unable to be visualized given bleeding. Laboratory studies along with ultrasound will be obtained, patient is agreeable. Laboratory studies showing WBC of 10.86 with a left shift. Hemoglobin stable at 14.2. Serum hCG 10,151.0. Urine is hemorrhagic with greater than 182 RBCs likely contaminated from vaginal bleeding. ultrasound showing no IUP at this time this could represent spontaneous , ectopic or gestational age too early to be visualized. Patient blood type is O- and she did receive RhoGAM. Case was discussed with on-call DANCING INSTRUCTOR, Dr. Guido. She advised on repeat serial hCG and close follow-up outpatient. I did contact [facility] and spoke with charge nurse, as requested by Dr. Guido. I provided them with the patient's information so that she can follow up with patient's repeat hCG in 48 hours. Upon reevaluation, patient resting comfortably on stretcher no signs of acute distress. Patient educated on laboratory and ultrasound findings, including concern of possible miscarriage. Patient is stable for discharge with close outpatient follow-up. DANCING INSTRUCTOR referral given, hCG prescription provided and prescribed. I advised close follow-up in the next 1 to 2 days. Strict return parameters discussed. Patient verbally expressed understanding and agreement with care plan. Case discussed with ED attending, Dr. Reese. Undiagnosed new problem with uncertain prognosis? @ -No Drug Therapy requiring intensive monitoring for toxicity (Heparin, Nitro, Insulin, Cardizem)? @ -No Were any procedures done? @ -No Diagnosis/symptom? @ -Threatened Acute, or Chronic, or Acute on Chronic? @ -Acute Uncomplicated (without systemic symptoms) or Complicated (systemic symptoms)? @ -Uncomplicated Side effects of treatment? @ -No Exacerbation, Progression, or Severe Exacerbation? @ -No Poses a threat to life or bodily function? How? (Chest pain, [place], [place], pneumonia, PE, COPD, DKA, ARF, appy, cholecystitis, CVA, Diverticulitis, Homicidal, Suicidal, threat to staff... and all critical care pts) @ -Low - Lab Data Result diagrams: 09/19/24 10:21 09/19/24 10:21 Lab Results 09/19/24 09/19/24 09/19/24 Range/Units 10:15 10:15 10:21 WBC 10.86 H (4.50-10.00) 10*3/uL RBC 4.66 (4.10-5.20) 10*6/uL Hgb 14.2 (12.0-15.0) g/dL Hct 40.7 (37.2-46.3) % MCV 87.3 (80.0-97.0) fL MCH 30.5 (27.0-32.0) pg MCHC 34.9 (32.0-37.0) g/dL Plt Count 301 (140-440) 10*3/uL MPV 9.9 (9.5-12.2) fL Immature Gran % (Auto) 0.4 % Neutrophils % 77.3 % Lymphocytes % 13.4 % Monocytes % 7.2 % Eosinophils % 1.3 % Basophils % 0.4 % Immature Gran # 0.04 (0.00-0.04) 10*3/uL Neutrophils # 8.41 H (1.80-7.70) 10*3/uL Lymphocytes # 1.45 (0.90-5.00) 10*3/uL Monocytes # 0.78 (0.20-1.00) 10*3/uL Eosinophils # 0.14 (0.04-0.35) 10*3/uL Basophils # 0.04 (0.00-0.10) 10*3/uL Sodium (137-145) mmol/L Potassium (3.5-5.1) mmol/L Chloride (98-107) mmol/L Carbon Dioxide (22-30) mmol/L Anion Gap mmol/L BUN (7-17) mg/dL Creatinine (0.52-1.04) mg/dL Est GFR (CKD-EPI)AfAm (>60 ml/min/1.73 sqM) Est GFR (CKD-EPI)NonAf (>60 ml/min/1.73 sqM) Glucose (74-99) mg/dL Calcium (8.4-10.2) mg/dL Total Bilirubin (0.2-1.3) mg/dL AST (14-36) U/L ALT (4-34) U/L Alkaline Phosphatase (38-126) U/L Total Protein (6.3-8.2) g/dL Albumin (3.5-5.0) g/dL HCG, Quant mIU/mL Urine Color Urine Appearance (Clear) Urine RBC (0-5) /hpf Ur Squamous Epith Cells (0-4) /hpf Blood Type O Negative Blood Type Recheck O Neg Bld Type Recheck Status No Antibody Screen NEGATIVE 09/19/24 09/19/24 Range/Units 10:21 10:21 WBC (4.50-10.00) 10*3/uL RBC (4.10-5.20) 10*6/uL Hgb (12.0-15.0) g/dL Hct (37.2-46.3) % MCV (80.0-97.0) fL MCH (27.0-32.0) pg MCHC (32.0-37.0) g/dL Plt Count (140-440) 10*3/uL MPV (9.5-12.2) fL Immature Gran % (Auto) % Neutrophils % % Lymphocytes % % Monocytes % % Eosinophils % % Basophils % % Immature Gran # (0.00-0.04) 10*3/uL Neutrophils # (1.80-7.70) 10*3/uL Lymphocytes # (0.90-5.00) 10*3/uL Monocytes # (0.20-1.00) 10*3/uL Eosinophils # (0.04-0.35) 10*3/uL Basophils # (0.00-0.10) 10*3/uL Sodium 135 L (137-145) mmol/L Potassium 4.5 (3.5-5.1) mmol/L Chloride 101 (98-107) mmol/L Carbon Dioxide 23 (22-30) mmol/L Anion Gap 11 mmol/L BUN 12 (7-17) mg/dL Creatinine 0.56 (0.52-1.04) mg/dL Est GFR (CKD-EPI)AfAm >90 (>60 ml/min/1.73 sqM) Est GFR (CKD-EPI)NonAf >90 (>60 ml/min/1.73 sqM) Glucose 108 H (74-99) mg/dL Calcium 9.8 (8.4-10.2) mg/dL Total Bilirubin 1.0 (0.2-1.3) mg/dL AST 20 (14-36) U/L ALT 16 (4-34) U/L Alkaline Phosphatase 80 (38-126) U/L Total Protein 6.7 (6.3-8.2) g/dL Albumin 4.3 (3.5-5.0) g/dL HCG, Quant 86140.0 mIU/mL Urine Color Red Urine Appearance Bloody H (Clear) Urine RBC >182 H (0-5) /hpf Ur Squamous Epith Cells 3 (0-4) /hpf Blood Type Blood Type Recheck Bld Type Recheck Status Antibody Screen - Radiology Data Radiology results: report reviewed, image reviewed Disposition Clinical Impression: Threatened Disposition: HOME SELF-CARE Condition: Stable Additional Instructions: Have repeat hCG drawn in 48 hours. Follow-up with Dr. Guido in the next 1 to 2 days. Return to the ER for any new or worsening concerns. Prescriptions: [id number] Acid [-U Capsule] 1 each PO DAILY #30 cap Is patient prescribed a controlled substance at d/c from ED?: No Referrals: Raina Brandt MD [Primary Care Provider] - 1-2 days Time of Disposition: 12:55
[2024-09-19] MEDS: SODIUM CHLORIDE 0.9% 1,000 ML IV ONE (10:36)
[2024-09-19 11:17] LABS: Basophils # (A) 0.04 10*3/uL (0.00-0.10); Basophils % (A) 0.4 %; Eosinophils # (A) 0.14 10*3/uL (0.04-0.35); Eosinophils % (A) 1.3 %; HCT 40.7 % (37.2-46.3); HGB 14.2 g/dL (12.0-15.0); Lymphocytes # (A) 1.45 10*3/uL (0.90-5.00); Lymphocytes % (A) 13.4 %; MCH 30.5 pg (27.0-32.0); MCHC 34.9 g/dL (32.0-37.0); MCV 87.3 fL (80.0-97.0); Mean Platelet Volume 9.9 fL (9.5-12.2); Monocytes # (A) 0.78 10*3/uL (0.20-1.00); Monocytes % (A) 7.2 %; Neutrophils # (A) 8.41 10*3/uL (1.80-7.70); Neutrophils % (A) 77.3 %; Platelet Count 301 10*3/uL (140-440); RBC 4.66 10*6/uL (4.10-5.20); RDW 12.5 % (11.5-14.5); WBC 10.86 10*3/uL (4.50-10.00)
[2024-09-19 11:35] LABS: Squamous Epithelial Cell,Urine 3 /hpf (0-4)
[2024-09-19 11:36] LABS: ALT 16 U/L (4-34); AST 20 U/L (14-36); African American GFR (CKD) >90 (>60 ml/min/1.73 sqM); Albumin 4.3 g/dL (3.5-5.0); Alkaline Phosphatase 80 U/L (38-126); Anion Gap 11 mmol/L; Blood Urea Nitrogen 12 mg/dL (7-17); Calcium 9.8 mg/dL (8.4-10.2); Carbon Dioxide 23 mmol/L (22-30); Chloride 101 mmol/L (98-107); Glucose 108 mg/dL (74-99); Non-African American GFR(CKD) >90 (>60 ml/min/1.73 sqM); Potassium 4.5 mmol/L (3.5-5.1); Sodium 135 mmol/L (137-145); Total Protein 6.7 g/dL (6.3-8.2)
[2024-09-19 11:41] LABS: Appearance,Urine Bloody (Clear)
[2024-09-19 11:42] LABS: Color,Urine Red
[2024-09-19 11:57] LABS: RBC,Urine >182 /hpf (0-5)
--- NOTE | 2024-09-19 12:16 | US ---
EXAMINATION TYPE: Transabdominal DATE OF EXAM: 09/19/2024 12:07 PM COMPARISON: NONE CLINICAL INDICATION: Female, 39 years old with history of + preg test vag bleeding; Vaginal bleeding with clots. positive test 2 days ago TECHNIQUE: Transvaginal (TV) and Transabdominal (TA) with grayscale and color Doppler imaging includi ng first trimester . FINDINGS: EXAM MEASUREMENTS: GESTATIONAL AGE / DATING Physician Established: Not yet established Dates by LMP: LMP unknown Dates by First Scan: No previous this is first scan Dates by Current Scan for: Unable to date by today's study MATERNAL ANATOMY Uterus: 10.9 x 5.4 x 6.6cm. limitations due to patient's body habitus Right Ovary: obscured by overlying bowel gas Left Ovary: obscured by overlying bowel gas Post CDS / Adnexa: appears wnl Presence of free fluid: no Presence of subchorionic bleed: no GESTATION / SURVEY IUP: No IUP seen at this time Date of LMP: unknown, possibly 09/13/24 Beta HcG (if available): Not available at this time Suboptimal study. Endometrium stripe is approximate 19 mm in thickness. No gestational sac, yolk sac, pole is seen. No free fluid in pelvis. Neither ovary clearly seen. No suspicious adnexal masses identified. IMPRESSION: Suboptimal study. Findings could reflect product of spontaneous versus too early to visualize intrauterine . Ectopic not entirely excluded. Serial beta hCG and ul trasound follow-up is advised. [facility], , 09/19/2024 12:14 PM
[2024-09-19] MEDS: Rhogam IMMUNE GLOBULIN 1,500 UNIT/1 ML IM ONE (13:21)
== END 2024-09-19 13:51 | disposition home or self-care (01) ==
LOC: EC 09:44
DX: O20.0 Threatened abortion (principal); Z3A.00 Weeks of gestation of pregnancy not specified
CPT/HCPCS: 36415; 86900; 86901; 80053; 85025; 86850; 81001; 84702; 76801; 76817; 99284; 96360; 96372; J2790

== ENCOUNTER 2024-09-24 17:21 | Emergency (ER) | payer OTHER ==
[2024-09-24 17:30] VITALS: TEMP 98.8
--- NOTE | 2024-09-24 18:29 | ED ---
Recheck HPI - General Source: patient, RN notes reviewed Mode of arrival: ambulatory Limitations: no limitations <Fatuma Guardado - Last Filed: 09/24/24 18:27> <Derrick Amaro - Last Filed: 09/24/24 20:44> - General Chief Complaint: OB/Uterine Contractions Stated Complaint: hcg levels need to be checked Time Seen by Provider: 09/24/24 18:20 - History of Present Illness Initial Comments: Quick Note: This is a 39-year-old female who presents to the emergency department to have her hCG levels evaluated. She was evaluated here on 09/19 for vaginal bleeding in . She was told that her hCG levels were around 10,000. She followed up with her primary care provider 2 days later to have her level rechecked and states that it was 1,000. She is concerned about the discrepancy and was told to come here to have her levels rechecked. States that the vaginal bleeding has since resolved. Denies any abdominal pain. (Fatuma Guardado) Dictation was produced using [employer] dictation software. please excuse any grammatical, word or spelling errors. Chief Complaint: 39-year-old female presents to the ER for beta quant follow-up History of Present Illness: Patient is a 39-year-old female she was seen here last week for bleeding in . She had a beta quant of 10,000. She fo llowed up 2 days later with her primary care doctor and ordered another beta quant's found to be lower. She did not quite sure if she is having a miscarriage states that she has no bleeding or pelvic pain. The ROS documented in this emergency department record has been reviewed and confirmed by me. Those systems with pertinent positive or negative responses have been documented in the HPI. All other systems are other negative and/or noncontributory. (Derrick Amaro) - Related Data Home Medications Medication Instructions Recorded Confirmed Beclomethasone Dipropionate [Qvar 2 puff INHALATION RT-BID 06/27/17 06/01/20 40 mcg] Ergocalciferol (Vitamin D2) 50,000 unit PO TU 06/27/17 06/01/20 [Vitamin D2] Atorvastatin [Lipitor] 40 mg PO HS 10/15/18 06/01/20 Cetirizine HCl [Zyrtec] 10 mg PO DAILY 10/15/18 06/01/20 Levothyroxine Sodium [Synthroid] 88 mcg PO DAILY 10/15/18 06/01/20 Albuterol Sulfate [Ventolin HFA] 1 - 2 puff INHALATION RT-Q6H PRN 06/01/20 06/01/20 Previous Rx's Medication Instructions Recorded Cephalexin [Keflex] 500 mg PO QID #28 cap 04/27/22 HYDROcodone/APAP 5-325MG [[place] 5] 1 each PO Q6HR PRN #12 tab 03/24/23 Ibuprofen [Motrin] 800 mg PO Q6HR #30 tab 03/24/23 Cyclobenzaprine [Flexeril] 10 mg PO TID PRN #15 tab 02/13/24 Ylu-Ymws-Ipcfl Acid 1 each PO DAILY #30 cap 09/19/24 [-U Capsule] Allergies Allergy/AdvReac Type Severity Reaction Status Date / Time No Known Allergies Allergy Verified 09/24/24 17:30 Review of Systems ROS Other: All systems not noted in ROS Statement are negative. <Fatuma Guardado - Last Filed: 09/24/24 18:27> ROS Other: All systems not noted in ROS Statement are negative. <Derrick Amaro - Last Filed: 09/24/24 20:44> ROS Statement: Those systems with pertinent positive or pertinent negative responses have been documented in the HPI. Past Medical History Past Medical History: Hypertension, Thyroid Disorder History of Any Multi-Drug Resistant Organisms: None Reported Past Surgical History: Section Additional Past Surgical History / Comment(s): eye Past Psychological History: No Psychological Hx Reported Smoking Status: Never smoker Past Alcohol Use History: None Reported Past Drug Use History: None Reported <Fatuma Guardado - Last Filed: 09/24/24 18:27> General Exam Limitations: no limitations <Fatuma Guardado - Last Filed: 09/24/24 18:27> <Derrick Amaro - Last Filed: 09/24/24 20:44> - General Exam Comments Initial Comments: Visual Physical Exam Vital signs reviewed General: Well-appearing, nontoxic, no acute distress. Head: Normocephalic, atraumatic Eyes: PERRLA, EOMI ENT: Airway patent Chest: Nonlabored breathing Skin: No visual rash, normal skin tone Neuro: Alert and oriented 3 Musculoskeletal: No gross abnormalities (Fatuma Guardado) General: Well-appearing, nontoxic, no acute distress. Head: Normocephalic, atraumatic Eyes: PERRLA, EOMI ENT: Airway patent Chest: Nonlabored breathing Skin: No visual rash, normal skin tone Neuro: Alert and oriented 3 Musculoskeletal: No gross abnormalities (Derrick Amaro) Course Vital Signs 09/24/24 17:26 Temperature 98.8 F Pulse Rate 85 Respiratory 16 Rate Blood Pressure 175/83 O2 Sat by Pulse 100 Oximetry Medical Decision Making <Fatuma Guardado - Last Filed: 09/24/24 18:27> - Lab Data Result diagrams: 09/24/24 19:38 09/24/24 19:38 <Derrick Amaro - Last Filed: 09/24/24 20:44> - Medical Decision Making I performed the QuickNote portion of this chart. Signed Fatuma Guardado PA-C. (Fatuma Guardado) Was pt. sent in by a medical professional or institution ([facility], [employer], urgent care, hospital, or long-term...) When possible be specific @ -No Did you speak to anyone other than the patient for history (EMS, parent, family, police, friend...)? What history was obtained from this source @ -No Did you review nursing and triage notes (agree or disagree)? Why? @ -I reviewed and agree with nursing and triage notes Were old charts reviewed (outside hosp., previous admission, EMS record, old EKG, old radiological studies, urgent care reports/EKG's, long-term records)? Report findings @ -No old charts were reviewed Differential Diagnosis (chest pain, altered mental status, abdominal pain women, abdominal pain men, vaginal bleeding, musculoskeletal, weakness, fever, dyspnea, syncope, headache, dizziness, GI bleed, back pain, seizure, CVA, palpatations, mental health)? @ -Not applicable EKG interpreted by me (3pts min.). @ -None done X-rays interpreted by me (1pt min.). @ -None done CT interpreted by me (1pt min.). @ -None done U/S interpreted by me (1pt. min.). @ -None done What testing was considered but not performed or refused? (CT, X-rays, U/S, labs)? Why? @ -None What meds were considered but not given or refused? Why? @ -None Was smoking cessation discussed for >3mins.? @ -No Were there social determinants of health that impacted care today? How? (Homelessness, low income, unemployed, alcoholism, drug addiction, transportation, low edu. Level, literacy, decrease access to med. care, fci, rehab)? @ -No Was there de-escalation of care discussed even if they declined (Discuss DNR or withdrawal of care, Hospice)? DNR status @ -No What co-morbidities impacted this encounter? (DM, HTN, Smoking, COPD, CAD, Cancer, CVA, ARF, Chemo, Hep., AIDS, mental health diagnosis, sleep apnea, mo rbid obesity)? @ -None Was patient admitted / discharged? Hospital course, mention meds given and r oute, prescriptions, significant lab abnormalities, going to OR and other pertinent info. @ -39-year-old female presents to the emergency department for beta quant check. Patient was seen here 5 days ago with a beta quant of 10,000. She has had rapidly declining beta quant. Today it is 113.8. Likely patient had miscarried. Patient is disappointed by the news. Patient told to follow-up with her [employer]. Did you discuss the management of the patient with other professionals (professionals i.e. , PA, [employer], lab, RT, psych nurse, social work assistant, technical supervisor, teacher, consumer loan officer, case management assistant)? Give summary @ -No Was critical care preformed (if so, how long)? @ -No Undiagnosed new problem with uncertain prognosis? @ -No Drug Therapy requiring intensive monitoring for toxicity (Heparin, Nitro, Insulin, Cardizem)? @ -No Were any procedures done? @ -No Diagnosis/symptom? Acute, or Chronic, or Acute on Chronic? Uncomplicated (without systemic symptoms) or Complicated (systemic symptoms)? @ -Miscarriage Side effects of treatment? @ -No Exacerbation, Progression, or Severe Exacerbation? @ -No Poses a threat to life or bodily function? How? (Chest pain, [place], [place], pneumonia, PE, COPD, DKA, ARF, appy, cholecystitis, CVA, Diverticulitis, Homicidal, Suicidal, threat to staff... and all critical care pts) @ -No (Derrick Amaro) - Lab Data Lab Results 09/24/24 09/24/24 09/24/24 Range/Units 19:33 19:38 19:38 WBC 10.46 H (4.50-10.00) 10*3/uL RBC 4.23 (4.10-5.20) 10*6/uL Hgb 13.0 (12.0-15.0) g/dL Hct 37.7 (37.2-46.3) % MCV 89.1 (80.0-97.0) fL MCH 30.7 (27.0-32.0) pg MCHC 34.5 (32.0-37.0) g/dL Plt Count 312 (140-440) 10*3/uL MPV 9.1 L (9.5-12.2) fL Immature Gran % (Auto) 0.4 % Neutrophils % 65.2 % Lymphocytes % 23.9 % Monocytes % 8.0 % Eosinophils % 1.9 % Basophils % 0.6 % Immature Gran # 0.04 (0.00-0.04) 10*3/uL Neutrophils # 6.82 (1.80-7.70) 10*3/uL Lymphocytes # 2.50 (0.90-5.00) 10*3/uL Monocytes # 0.84 (0.20-1.00) 10*3/uL Eosinophils # 0.20 (0.04-0.35) 10*3/uL Basophils # 0.06 (0.00-0.10) 10*3/uL Sodium 136 L (137-145) mmol/L Potassium 4.4 (3.5-5.1) mmol/L Chloride 102 (98-107) mmol/L Carbon Dioxide 28 (22-30) mmol/L Anion Gap 6 mmol/L BUN 21 H (7-17) mg/dL Creatinine 0.72 (0.52-1.04) mg/dL Est GFR (CKD-EPI)AfAm >90 (>60 ml/min/1.73 sqM) Est GFR (CKD-EPI)NonAf >90 (>60 ml/min/1.73 sqM) Glucose 98 (74-99) mg/dL Calcium 9.8 (8.4-10.2) mg/dL Total Bilirubin 0.8 (0.2-1.3) mg/dL AST 20 (14-36) U/L ALT 18 (4-34) U/L Alkaline Phosphatase 78 (38-126) U/L Total Protein 7.1 (6.3-8.2) g/dL Albumin 4.4 (3.5-5.0) g/dL HCG, Quant 113.8 mIU/mL Urine Color Colorless Urine Appearance Cloudy H (Clear) Urine pH 6.0 (5.0-8.0) Ur Specific [place] 1.012 (1.001-1.035) Urine Protein Negative (Negative) Urine Glucose (UA) Negative (Negative) Urine Ketones Negative (Negative) Urine Blood Small H (Negative) Urine Nitrite Negative (Negative) Urine Bilirubin Negative (Negative) Urine Urobilinogen <2.0 (<2.0) mg/dL Ur Leukocyte Esterase Large H (Negative) Urine RBC 3 (0-5) /hpf Urine WBC 54 H (0-5) /hpf Ur Squamous Epith Cells 27 H (0-4) /hpf Urine Bacteria Occasional H (None) /hpf Urine Mucus Rare H (None) /hpf Disposition <Fatuma Guardado - Last Filed: 09/24/24 18:27> Is patient prescribed a controlled substance at d/c from ED?: No Time of Disposition: 20:44 <Derrick Amaro - Last Filed: 09/24/24 20:44> Clinical Impression: Miscarriage Disposition: HOME SELF-CARE Condition: Fair Instructions (If sedation given, give patient instructions): Miscarriage (ED) Referrals: Raina Brandt MD [Primary Care Provider] - 1-2 days
[2024-09-24 19:50] LABS: Basophils # (A) 0.06 10*3/uL (0.00-0.10); Basophils % (A) 0.6 %; Eosinophils % (A) 1.9 %; HCT 37.7 % (37.2-46.3); Lymphocytes % (A) 23.9 %; MCH 30.7 pg (27.0-32.0); MCHC 34.5 g/dL (32.0-37.0); MCV 89.1 fL (80.0-97.0); Mean Platelet Volume 9.1 fL (9.5-12.2); Monocytes # (A) 0.84 10*3/uL (0.20-1.00); Neutrophils # (A) 6.82 10*3/uL (1.80-7.70); Neutrophils % (A) 65.2 %; Platelet Count 312 10*3/uL (140-440); RBC 4.23 10*6/uL (4.10-5.20); RDW 12.5 % (11.5-14.5); WBC 10.46 10*3/uL (4.50-10.00)
[2024-09-24 19:56] LABS: Appearance,Urine Cloudy (Clear); Bacteria,Urine Occasional /hpf; Bilirubin,Urine Negative (Negative); Blood,Urine Small (Negative); Color,Urine Colorless; Glucose,Urine (UA) Negative (Negative); Ketones,Urine Negative (Negative); Leukocyte Esterase,Urine Large (Negative); Mucus,Urine Rare /hpf; Nitrite,Urine Negative (Negative); Protein,Urine Negative (Negative); RBC,Urine 3 /hpf (0-5); Specific Gravity,Urine 1.012 (1.001-1.035); Squamous Epithelial Cell,Urine 27 /hpf (0-4); Urobilinogen,Urine <2.0 mg/dL (<2.0); WBC,Urine 54 /hpf (0-5)
[2024-09-24 20:00] LABS: ALT 18 U/L (4-34); AST 20 U/L (14-36); African American GFR (CKD) >90 (>60 ml/min/1.73 sqM); Albumin 4.4 g/dL (3.5-5.0); Alkaline Phosphatase 78 U/L (38-126); Anion Gap 6 mmol/L; Blood Urea Nitrogen 21 mg/dL (7-17); Calcium 9.8 mg/dL (8.4-10.2); Carbon Dioxide 28 mmol/L (22-30); Chloride 102 mmol/L (98-107); Glucose 98 mg/dL (74-99); Non-African American GFR(CKD) >90 (>60 ml/min/1.73 sqM); Potassium 4.4 mmol/L (3.5-5.1); Sodium 136 mmol/L (137-145); Total Bilirubin 0.8 mg/dL (0.2-1.3); Total Protein 7.1 g/dL (6.3-8.2)
[2024-09-24 20:16] LABS: HCG,Quantitative Serum 113.8 mIU/mL
[2024-09-24 20:53] VITALS: BP 169/110; PULSE 84; RESP 18
== END 2024-09-24 20:51 | disposition home or self-care (01) ==
LOC: EC 17:21
DX: O03.9 Complete or unspecified spontaneous abortion without complication (principal)
CPT/HCPCS: 36415; 80053; 81001; 84702; 85025; 87086; 99283